=== PATIENT | female | born 1945 | race Caucasian/White ===

== ENCOUNTER 2023-12-22 05:13 | Observation (INO) ==
--- NOTE | 2023-12-11 08:55 | PAT Medication Instructions ---
Medication Instructions Date of Service December 11, 2023 Home Medications aspirin 81 mg capsule 81 mg PO QAM calcium carbonate 600 mg-vitamin D3 5 mcg (200 unit) tablet 1 tab PO DAILY fluoxetine 20 mg capsule 20 mg PO QAM gabapentin 100 mg capsule 200 mg PO HS lisinopril 2.5 mg tablet 2.5 mg PO PM multivitamin 1 tab PO QAM omega 6-lof-jqj-fish oil 300 mg-1,000 mg capsule (Fish Oil) 1 cap PO QAM rosuvastatin 10 mg tablet 10 mg PO PM triamcinolone acetonide 55 mcg nasal spray aerosol (Nasacort) 1 spray intranasal QAM ASK your prescriber and surgeon aspirin 81 mg capsule 81 mg PO QAM STOP taking 2 weeks before surgery (or as soon as possible if surgery is within 2 weeks) omega 7-tvs-kgl-fish oil 300 mg-1,000 mg capsule (Fish Oil) 1 cap PO QAM DO NOT take the morning of surgery calcium carbonate 600 mg-vitamin D3 5 mcg (200 unit) tablet 1 tab PO DAILY multivitamin 1 tab PO QAM Take morning of surgery With a small sip of water, OTHERWISE NOTHING TO EAT OR DRINK AFTER MIDNIGHT: fluoxetine 20 mg capsule 20 mg PO QAM triamcinolone acetonide 55 mcg nasal spray aerosol (Nasacort) 1 spray intranasal QAM Take evening before surgery gabapentin 100 mg capsule 200 mg PO HS lisinopril 2.5 mg tablet 2.5 mg PO PM rosuvastatin 10 mg tablet 10 mg PO PM Other Notes If you have any questions please call us at [phone] or [phone] or [phone] or [phone]
--- NOTE | 2023-12-14 10:05 | Anesthesiology Consultation ---
Date of Service December 14, 2023 Assessment & Plan (1) Encounter for pre-operative examination: Chart Review Chart Review: Acceptable Risk for Surgery and Patient seen in Pre Admission Testing - Patient is NOT an ideal OPJ candidate (currently 23 hour obs) Per PAT appt on 12/14/23, no recent illness/disease exposures, illness related symptoms, or recent illness/disease positive tests. Will leave to surgeon's discretion if preop Covid testing needed Teaching & Discussion Pre-Anesthesia Teaching/Discussion Notes: Instructed NPO after midnight before surgery,except medications with 15 cc of water. Medication instructions provided according to the [facility] guidelines. History Surgery Operation Date: 12/22/23 07:00 Proposed Procedures p Right Total Knee Arthroplasty - Lon Calero MD Height/Weight Height: 5 ft 2 in Weight: 82.3 kg Allergies Allergy/AdvReac Type Severity Reaction Status Date / Time Sulfa (Sulfonamide Allergy Mild HIVES Verified 12/10/23 14:13 Antibiotics) Medications Home Medications Medication Instructions Recorded Confirmed Last Taken aspirin 81 mg capsule 81 mg PO QAM 12/10/23 12/10/23 Unknown calcium carbonate 600 mg-vitamin 1 tab PO DAILY 12/10/23 12/10/23 Unknown D3 5 mcg (200 unit) tablet fluoxetine 20 mg capsule 20 mg PO QAM 12/10/23 12/10/23 Unknown gabapentin 100 mg capsule 200 mg PO HS 12/10/23 12/10/23 Unknown lisinopril 2.5 mg tablet 2.5 mg PO PM 12/10/23 12/10/23 Unknown multivitamin 1 tab PO QAM 12/10/23 12/10/23 Unknown omega 1-tmt-raj-fish oil 300 1 cap PO QAM 12/10/23 12/10/23 Unknown mg-1,000 mg capsule (Fish Oil) rosuvastatin 10 mg tablet 10 mg PO PM 12/10/23 12/10/23 Unknown triamcinolone acetonide 55 mcg 1 spray intranasal QAM 12/10/23 12/10/23 Unknown nasal spray aerosol (Nasacort) Past Medical History Medical History Bilateral primary osteoarthritis of knee Depression stable History of COVID-19 fall 2022 - no residual issues Hx of migraine headaches no issues x 20 years Hyperlipidemia Hypertension Neuropathy Bilateral hands and feet x > 30 years Sleep apnea no device - could not tolerate Slow to wake up after anesthesia Stress incontinence Exercise / Class Metabolic Activity III < 4 Walking/Shop/Light housework (no chest pain or SOB- with flat surface ambulation ) Past Surgical History Surgical History (Updated 12/14/23 @ 13:56 by Venus Sparks PA-C) History of x1 (twins) (38 years ago) History of colonoscopy History of surgery Right lower neck surgery to remove muscle mass caused by forceps used at History of tonsillectomy History of tooth extraction Past Anesthesia History No Hx of Anesthesia Complications (with exception to slow to wake with anesthesia- just groggy - no reintubation or ICU stay ) and No Family Hx of Anesthesia Complications History of PONV No Hx of PONV and No Hx of Motion Sickness Social History Smoking Status: Former smoker Do You Dip or Chew Tobacco: No Smoking End Date: in college only short term Hx Alcohol Use: Yes Alcohol type: beer, wine and hard liquor alcohol intake frequency: holidays/special occasions only Hx Substance Use: No substance use type: does not use Review of Systems Patient denies chest pain, shortness of breath, dyspnea on exertion, reflux, cough, wheezing, palpitations. No hx of seizures, stroke, HI. No hx of blood clots or blood transfusions Physical Exam Vital Signs VITALS BP 150/77 (usually well controlled) P 65 TEMP 97.6 SP02 98% RESP 16 Constitutional no acute distress ENMT Mouth: no TMJ clicking Thyromental Distance: > or= 3.5 Finger Breadths (3.5) Mallampati Class: III Crowns to molars Neck neck extension not limited Respiratory normal respiratory effort; no respiratory distress Auscultation: lungs clear to auscultation bilaterally; no wheezes Cardiovascular Rate/Rhythm: regular rate and regular rhythm Heart Sounds: no murmur Vessels: no carotid bruit Musculoskeletal Spine: no pain with cervical ROM Extremities: extremities normal to inspection Psychiatric Orientation: alert Lab Results Anesthesia Preop Results Results Anesthesia Widget: WBC 6.32 K/ul (4.8-10.8) 12/14/23 Hgb 12.4 g/dl (12.0-16.0) 12/14/23 Hct 36.1 % (37.0-47.0) L 12/14/23 Plt 289 K/uL (130-400) 12/14/23 Na 140 mmol/L (136-145) 12/14/23 K 4.7 mmol/L (3.5-5.1) 12/14/23 Cl 107 mmol/L (98-107) 12/14/23 CO2 26 mmol/L (21-32) 12/14/23 BUN 16 mg/dl (6-23) 12/14/23 Creat 0.74 mg/dl (0.6-1.2) 12/14/23 Glucose Level 79 mg/dl (70-99(Fasting)) 12/14/23 PT 10.5 Seconds (9.0-12.0) 12/14/23 PTT 28 Seconds (21-31) 12/14/23 INR 1.0 (0.9-1.1) 12/14/23 Blood Type O Positive 12/14/23 Antibody Screen NEGATIVE 12/14/23 Testing Electrocardiogram Date: 12/14/23 Findings: + NSR @ (61bpm ) Normal EKG per cardio Chest X-Ray Date: 12/14/23 Findings: + NAD Stress Test Date: 02/27/21 Type: exercise (ECHO) Resting EF: 55-59% Resting LV Function: normal Resting RWMA: + none Valvular Disease: no significant valvular disease Stress ECHO is negative for inducible ischemia. MPHR 87%. 6.0 METS achieved. Exercise test was terminated per patient request due to fatigue and difficulty maintaining pace on treadmill related to peripheral neuropathy Patient's presenting symptom of bandlike chest discomfort was no reproduced. Mild cLVH. Grade I DD.
[2023-12-22] MEDS: FAMOTIDINE 20 MG TAB PO SCH (06:05)
[2023-12-22] MEDS: ACETAMINOPHEN 500 MG TAB PO SCH ×2 (06:05→10:47)
[2023-12-22] MEDS: METOCLOPRAMIDE HCL 10 MG TABLET PO SCH (06:05)
[2023-12-22] MEDS: CeleBREX 200 MG CAP PO SCH (06:05)
[2023-12-22] MEDS: dexAMETHasone**PF** 10 MG/ML VIAL IV SCH (06:06)
[2023-12-22] MEDS: LR 500ML BOLUS, THEN 15ML/HR IV SCH (06:06)
[2023-12-22] MEDS: LR 60ML/HR IV SCH (06:06)
[2023-12-22] MEDS ORDERED: PROPOFOL IV EMULSION 10 MG/ML 20 ML VIAL IV ONE (06:32)
[2023-12-22] MEDS ORDERED: fentaNYL citrate PF 100 MCG/2 ML VIAL ONE (06:32)
[2023-12-22] MEDS ORDERED: MIDAZOLAM HCL 1 MG/ML 2ML VIAL ONE (06:32)
[2023-12-22] MEDS ORDERED: BUPIVACAINE 0.5 % 5 MG/1 ML PF 10ML VIAL ONE (06:33)
[2023-12-22] MEDS ORDERED: BUPIVACAINE 0.25% PF 30 ML VIAL ONE (06:33)
[2023-12-22] MEDS ORDERED: ePHEDrine sulfate 50 MG/ML AMP IV PRN (06:42)
[2023-12-22] MEDS ORDERED: fentaNYL citrate PF 100 MCG/2 ML VIAL IV PRN (06:42)
[2023-12-22] MEDS ORDERED: ATROPINE SULFATE 0.1 MG/ML 10ML SYR IV PRN (06:42)
--- NOTE | 2023-12-22 06:49 | History & Physical Bridge Note ---
Date of Service December 22, 2023 History & Physical Bridge Note I have examined the patient, reviewed the History & Physical and in the interval since the performance of the History & Physical I have noted the following changes of clinical significance: no changes noted
[2023-12-22] MEDS: ceFAZolin 2000MG 2,000 MG/15 ML SYR IV SCH ×2 (06:58→13:50)
[2023-12-22] MEDS: ORTHO JOINT ANESTHETIC ONE (07:33)
[2023-12-22] MEDS: ROPIV 0.5% 246mg, Ketorolac 30mg, EPINEPHrine 0.5mg in NSS INFIL SCH (07:33)
[2023-12-22] MEDS: TRANEXAMIC ACID 1,000 MG **IV Intra-op IV SCH (07:46)
--- NOTE | 2023-12-22 08:50 | Operative Report ---
PG Post Operative Report Pre & Post Diagnosis Operation Date: 12/22/23 07:00 Pre-Op Diagnosis: DJD Knee Right Post-Op Diagnosis: DJD Knee Right I identified the patient and participated in the time-out.: Yes Procedure Operation Date: 12/22/23 07:00 Actual Procedures p Right Total Knee Arthroplasty(Right) - Lon Calero MD Surgeon Lon Calero MD Commercial Sales Manager Melvin Langford PA-C Estimated Blood Loss 50 Findings Consistent with Post-Op Diagnosis Operative findings were advanced right knee lateral compartment DJD. She had pretty extensive grade 4 qrrn-uh-viot disease the anterolateral compartment. M oderate-sized joint effusion. Valgus deformity to her knee. She had grade 4 patellofemoral disease as well. The medial compartment was pretty well spared. Specimens Right knee sent for pathology. Anesthesia Type Spinal MAC Complications none Disposition Accompanied Patient To Recovery: No Indications Patient is a 77-year-old female is had a 7-year history of increasing bilateral knee pain discomfort right-sided bit worse than the left. She been through extensive conservative treatment provided at [facility] which has become less successful over time. She came more debilitated by her knee pain. X-rays show advanced knee arthritis. She elected proceed with total knee arthroplasty. Description of Procedure Operative implants consist of: 1. Biomet Vanguard size 60 right posterior stabilized femoral component. 2. Biomet size 63 tibial tray. 3. 10 mm post stabilized polyethylene insert. 4. 28 x 8 all poly patella. The patient was taken the operating, identified, placed on the operating table in the supine position. All contact areas were appropriately padded. IV antibiotics tried by anesthesia team. Spinal anesthetic and abductor canal block had been provided in the holding area. A Gallo catheter was placed in sterile fashion. Right thigh tourniquet was then placed in the right lower extremity was then prepped and draped in usual sterile fashion. The right leg was elevated exsanguinated with use of an Esmarch and the tourniquet was placed at 300 mmHg. An anterior approach to the right knee was then performed to longitudinal incision centered over the patella. Sharp dissection Through subcutaneous tissue down the extensor mechanism. A medial parapatellar arthrotomy incision was made. Some subperiosteal dissection was carried out medially. The fat pad was resected from Neath patella tendon. Lateral patellofemoral ligament was released. Patella was subluxated laterally and the knee was flexed. The osteophytes taken off distal femur. The ACL and PCL were then released from the distal femur and the tibia subluxated anteriorly. The external treatment line jig was then placed in the interface the tibia and adjusted 12 mm medially. Proximal tibial cut was made remove about 2 to 3 mm of bone from the medial side. The tibia was sized to a size 63. Attention drawn the femur. The distal femur was entered with a sharp drill. Intramedullary canal was suction. A right 5 degree valgus cutting guide was placed. The distal femoral cutting block was pinned in place. Distal femoral cut was made to take an additional 3 mm of bone off distal femur. The knee was brought out in extension but. I then released the IT band some to equalize extension gap. The knee was then sized and a size 66 size was selected. The AP cutting block was pinned parallel to the epicondylar axis which was 4 degrees of external rotation. The anterior cut, anterior chamfer, posterior cut, posterior chamfer cuts were made. The box cutting guide was placed in the just slight lateral and the box cut was made. The knee was flexed. The remnants of the medial and lateral menisci were excised. The osteophytes taken off the posterior aspect the femur. A trial femoral component was placed. The tibial tray was pinned in maximum external rotation and the drill and stem punch were used to create defect in proximal t ibia for the tibial tray. The knee was then trialed and the 10 mm insert fit most appropriately. Attention drawn to place the patella. The patella was cleared of all soft tissues. Patella thickness measured 18 mm in thickness was cut down to 13. Was sized to a size 28 patella. The locals were drilled for the 28 patella. The lateral osteophyte was removed. Patella button was placed. Knee was taken through range of motion patella tracked nicely with no thumbs test. Attention drawn to placing the permanent components. Nupathe all trial components were removed. Bone plug was placed in the distal femur limit blood loss. A double batch Palacos G cement was mixed. [employer] size 60 right posterior stabilized femoral component, size 63 tibial tray, a 10 mm posterior stabilized polyethylene insert, and a 28 x 8 all poly patella then cemented in place. The knee was brought out into full extension till cement hardened. Final cement check was then performed. The pericapsular tissues were injected with total of 100 cc of orthopedic joint mix. The patient did receive 1 g tranexamic acid. The tourniquet was then let down for final tourniquet time 54 minutes. Hemostasis assured use electrocautery. Extensor Meclomen closed with combination 1 PDS suture #1 Vicryl suture in [id number] fashion. Extensor Meclomen checked found to be intact and subcutaneous tissues then closed with 2 Dexon suture in a buried interrupted fashion skin was closed skin teddy. Leg was then cleaned and dried and sterile dressing with Xeroform, 4 fours, sterile ABD pad, sterile cast padding, Parker bandage were applied. The patient then transferred to the recovery in stable condition. Patient tolerated the procedure well and there were no complications. Melvin Langford, my physician digital assistant, was present for the entire procedure. His assistance was essential and required for appropriate patient positioning, prepping and draping, surgical exposure, performing the technical details of the operation, placement the implants, closure of the wound, and placement of the sterile bandage. I attest to the content of the Intraoperative Record and any orders documented therein. Any exceptions are noted below.
--- NOTE | 2023-12-22 09:29 | XRay Report ---
TWO VIEWS RIGHT KNEE CLINICAL HISTORY: Postoperative examination. FINDINGS: AP and crosstable lateral portable views of the right knee are obtained. A right knee arthr oplasty is in near anatomic alignment. There has been undersurface remodeling of the patella. No acut e fracture is seen. There are expected postoperative changes around the knee including skin clips, so ft tissue edema, and subcutaneous gas. IMPRESSION: Expected postoperative changes status post right knee arthroplasty. No acute fracture is seen. ACT 112: Negative or not required by law. Electronically signed by: Haroldo Vanessa M.D. 12/22/2023 9:28 AM
[2023-12-22] MEDS ORDERED: NON-FORMULARY MEDICATION (Multivitamin Tablet) PO SCH (09:40)
[2023-12-22] MEDS ORDERED: MAGNESIUM HYDROXIDE SUSP 30 ML UDC PO PRN (09:40)
[2023-12-22] MEDS ORDERED: ONDANSETRON INJ 2 MG/ML 2 ML VIAL IV PRN (09:40)
[2023-12-22] MEDS ORDERED: bisacodyL 10 MG SUPP PR PRN (09:40)
[2023-12-22] MEDS ORDERED: ALUMINUM/MAGNESIUM SUSP 30 ML UDC PO PRN (09:40)
[2023-12-22] MEDS ORDERED: NALOXONE HCL 0.4 MG/1 ML VIAL/CARP IV PRN (09:40)
[2023-12-22] MEDS ORDERED: METOCLOPRAMIDE HCL INJ 5 MG/ML 2 ML VIAL IV PRN (09:40)
[2023-12-22] MEDS: SODIUM CHLORIDE 0.9% 1,000 ML IV SCH (10:15)
--- NOTE | 2023-12-22 10:31 | Anesthesiology Progress Note ---
Date of Service December 22, 2023 Anesthesia Post Procedure Vital Signs Vital Signs: Temp Pulse Pulse Resp BP Pulse Ox O2 Del Method 12/22/23 10:05 37 C 90 18 145/71 H 97 Room Air 12/22/23 09:41 36.7 C 85 18 128/68 96 Room Air 12/22/23 09:30 86 18 132/64 95 Room Air 12/22/23 09:20 36.5 C 92 H 20 128/62 96 Room Air 12/22/23 09:10 89 20 145/55 H 98 Room Air 12/22/23 09:00 89 18 138/72 98 Oxymask 12/22/23 08:50 98 H 16 124/78 100 Oxymask 12/22/23 08:44 36.2 C L 96 H 14 141/63 H 96 Oxymask 12/22/23 05:40 36.8 C 72 20 160/67 H 98 Room Air O2 Flow Rate 12/22/23 10:05 12/22/23 09:41 12/22/23 09:30 12/22/23 09:20 12/22/23 09:10 12/22/23 09:00 2 12/22/23 08:50 4 12/22/23 08:44 6 12/22/23 05:40 Transfer of Care Handoff Completed per policy Notes Mental Status: alert / awake / arousable Patient Amnestic to Procedure: Yes Nausea / Vomiting: adequately controlled Pain: adequately controlled Airway Patency, RR, SpO2: stable & adequate BP & HR: stable & adequate Hydration State: stable & adequate Neuraxial Anesthesia: was administered and sensory block is resolving Anesthetic Complications: no major complications apparent and Pt Satisfied with anesthetic care
[2023-12-22] MEDS: ASPIRIN 81 MG ECTAB PO SCH (10:41)
[2023-12-22] MEDS: DOCUSATE SODIUM 100 MG CAP PO SCH (10:41)
[2023-12-22] MEDS: FLUoxetine HCL 20 MG CAP PO SCH (10:41)
[2023-12-22] MEDS: MULTIVITAMIN TAB PO SCH (10:43)
[2023-12-22] MEDS: FLUTICASONE PROPIONATE NA SPR 16 GM BTL NAE SCH (10:45)
[2023-12-22] MEDS: OMEGA-3 (PURIFIED FISH OIL) 1 GM CAP PO SCH (10:46)
[2023-12-22] MEDS: CALCIUM 600MG + VIT D 400 IU TAB PO SCH (10:46)
[2023-12-22] MEDS: SENNA 8.6 MG TAB PO SCH ×2 (10:47→20:08)
[2023-12-22] MEDS: KETOROLAC TROMETHAMINE 15 MG/ML VIAL IV SCH (10:50)
[2023-12-22] MEDS: ONDANSETRON INJ 2 MG/ML 2 ML VIAL IV PRN (11:13)
[2023-12-22] MEDS: rOPINIRole HCL 0.25 MG TABLET PO SCH (11:34)
[2023-12-22 11:45] VITALS: RESP 16
[2023-12-22] MEDS: TRANEXAMIC ACID / 0.7% NACL 1,000 MG/100 ML BAG IV SCH (13:50)
[2023-12-22] MEDS: ASCORBIC ACID 500 MG TAB PO SCH (17:16)
[2023-12-22] MEDS: lisinopril 2.5 MG TAB PO SCH (20:05)
[2023-12-22] MEDS: ROSUVASTATIN CALCIUM 10 MG TAB PO SCH (20:05)
[2023-12-22] MEDS: GABAPENTIN 100 MG CAP PO SCH (20:06)
[2023-12-22] MEDS ORDERED: rOPINIRole HCL 0.25 MG TABLET PO SCH (21:00)
[2023-12-22] MEDS: oxyCODONE HCL IR 5 MG TAB (IMMEDIATE RELEASE) PO PRN (21:23)
[2023-12-23] MEDS: HYDROmorphone INJ 0.5 MG/0.5 ML SYR IV PRN (01:39)
[2023-12-23 06:32] LABS: Hematocrit (blood only) 30.9 % (37.0-47.0); Hemoglobin 10.4 g/dl (12.0-16.0); Mean Corpuscular Hemoglobin 31.1 pg (25.0-34.0); Mean Corpuscular Hgb Conc 33.7 g/dL (32.0-36.0); Mean Corpuscular Volume 92.5 fL (80.0-100.0); Platelet Count 262 K/uL (130-400); RDW Coefficient of Variation 12.8 % (11.5-14.5); RDW Standard Deviation 43.1 fL (36.4-46.3); Red Blood Count 3.34 M/uL (4.20-5.40); White Blood Count 13.76 K/ul (4.8-10.8)
[2023-12-23 06:37] LABS: BUN Creatinine Ratio 21.5 (10-20); Est GFR (African American) 99.3 ml/min; Est GFR (Non-African American) 85.6 ml/min; Potassium 4.1 mmol/L (3.5-5.1)
--- NOTE | 2023-12-23 07:23 | Orthopedic Progress Note ---
Date of Service December 23, 2023 Assessment & Plan (1) Status post total right knee replacement: Pain controlled. Continue current pain management. DVT prophylaxis: aspirin bid, teds, scd's PT/OT: wbat D/c planning: Likely discharge home today with home health, depending how therapy goes. Will discuss with Dr. Abdias Morris . 77 year old patient POD #1 from right tka. Doing reasonably well. Pain controlled. She said she just had 2 oxycodone. Denies lightheadedness/dizziness. Review of Systems All systems reviewed & are unremarkable except as noted in HPI & below. Physical Exam .alert and oriented. NAD VSS, afebrile. Right leg: dressing clean, dry, intact. Able to do a straight leg raise. Calf soft, nontender. Able to dorsiflex and plantarflex. NVI Hgb: 10.4 Results & Data Results & Data Laboratory Results . Diagnostic Findings . PG Care Time/CCT Total # of Minutes Spent Total Time Spent with Patient: Total time spent is greater than 50% in coordination of care (as documented) at patient's floor/unit and/or counseling patient: Coding Level of Care Code 79808 Post Operative Follow-Up Diagnoses Status post total right knee replacement Z96.651
[2023-12-23 07:33] VITALS: BP 118/66; PULSE 65; TEMP 97.5; O2SAT 96
[2023-12-23] MEDS: dexAMETHasone 10 MG in SYRINGE 0 ML IV SCH (07:41)
--- NOTE | 2023-12-24 13:53 | Discharge Summary ---
Date of Service December 24, 2023 Discharge Data Procedures Performed Operation Date: 12/22/23 07:00 Actual Procedures p Right Total Knee Arthroplasty(Right) - Lon Calero MD Hospital Course (1) Status post total right knee replacement: This is a 77 year old patient admitted on 12/22/23 and underwent total knee arthroplasty. She tolerated the procedure well and there were no complications. Transferred to the PACU post op and later to the orthopedic floor for further care. She was given ancef for antibiotic prophylaxis. She was also given CATIE stockings, SCDs, and aspirin for DVT prophylaxis. Hemoglobin, hematocrit, and vital signs were monitored during her hospital stay and remained stable. Did not require any blood transfusions. There were no complications during her hospital stay. By post op day #1 the patient was tolerating a regular diet, pain was reasonably controlled with oral pain medicine, and she was participating in physical therapy. On post op day #1 the patient was discharged home and set up with home health care. She was given printed discharge instructions including prescriptions for extra strength tylenol, aspirin, cefadroxil, ketorolac, zofran, oxycodone, and senokot. Continue physical therapy, weight bearing as tolerated. Continue CATIE stockings. Follow up approximately 2 weeks post op or sooner if there are problems or concerns. Coding Level of Care Code None Diagnoses Status post total right knee replacement Z96.651
== END 2023-12-23 11:35 | disposition home health service (06) ==
LOC: 3E 05:13 → ASU 05:13

== ENCOUNTER 2024-10-04 05:16 | Observation (INO) ==
--- NOTE | 2024-08-11 13:01 | PAT Medication Instructions ---
Medication Instructions Date of Service August 11, 2024 Home Medications Medication Instructions Recorded Mila Walker #1 ea 12/15/23 amoxicillin 500 mg tablet 2,000 mg (4 x 500 mg) PO ONCE #4 04/18/24 tabs calcium 600 mg (as carbonate)-vitamin D3 5 mcg (200 unit) tablet 2 tab PO QAM fluoxetine 20 mg capsule 20 mg PO QAM gabapentin 100 mg capsule 100 mg PO TID lisinopril 2.5 mg tablet 2.5 mg PO QPM multivitamin 1 tab PO QAM omega 8-ytq-exe-fish oil 300 mg-1,000 mg capsule (Fish Oil) 1 cap PO QAM rosuvastatin 10 mg tablet 10 mg PO QPM triamcinolone acetonide 55 mcg nasal spray aerosol (Nasacort) 1 spray intranasal QAM amoxicillin 500 mg tablet 2,000 mg (4 x 500 mg) PO ONCE acetaminophen 500 mg tablet (Tylenol Extra Strength) 1,000 mg PO TID PRN pain aspirin 81 mg tablet,delayed release (Silvano Low Dose Aspirin) 81 mg PO QAM ibuprofen 200 mg tablet 400 mg PO Q6H PRN Pain ropinirole 0.5 mg tablet 0.5 mg PO TID PRN Restless Leg(S) ropinirole 1 mg tablet 1 mg PO HS vitamin B12 1 mg-folic acid 0.8 mg tablet 1 tab PO DAILY Continue as directed amoxicillin 500 mg tablet 2,000 mg (4 x 500 mg) PO ONCE (if needed) ASK your surgeon for instructions ibuprofen 200 mg tablet 400 mg PO Q6H PRN Pain STOP taking 2 weeks before surgery omega 9-plz-dvb-fish oil 300 mg-1,000 mg capsule (Fish Oil) 1 cap PO QAM DO NOT take the morning of surgery calcium 600 mg (as carbonate)-vitamin D3 5 mcg (200 unit) tablet 2 tab PO QAM multivitamin 1 tab PO QAM vitamin B12 1 mg-folic acid 0.8 mg tablet 1 tab PO DAILY Take morning of surgery With a small sip of water, OTHERWISE NOTHING TO EAT OR DRINK AFTER MIDNIGHT: fluoxetine 20 mg capsule 20 mg PO QAM gabapentin 100 mg capsule 100 mg PO TID triamcinolone acetonide 55 mcg nasal spray aerosol (Nasacort) 1 spray intranasal QAM acetaminophen 500 mg tablet (Tylenol Extra Strength) 1,000 mg PO TID PRN pain (if needed) aspirin 81 mg tablet,delayed release (Silvano Low Dose Aspirin) 81 mg PO QAM (unless surgeon directed otherwise) ropinirole 0.5 mg tablet 0.5 mg PO TID PRN Restless Leg(S) (if needed) Take evening before surgery gabapentin 100 mg capsule 100 mg PO TID lisinopril 2.5 mg tablet 2.5 mg PO QPM rosuvastatin 10 mg tablet 10 mg PO QPM acetaminophen 500 mg tablet (Tylenol Extra Strength) 1,000 mg PO TID PRN pain (if needed) ropinirole 1 mg tablet 1 mg PO HS ropinirole 0.5 mg tablet 0.5 mg PO TID PRN Restless Leg(S) (if needed) Other Notes If you have any questions please call us at [phone] or [phone] or [phone] or [phone]
--- NOTE | 2024-08-17 08:22 | Anesthesiology Consultation ---
Date of Service August 17, 2024 Assessment & Plan (1) Encounter for pre-operative examination: - Outpatient joint assessment: Patient is currently scheduled for inpatient pathway. If re-evaluated and patient/surgeon requests outpatient pathway, patient is not advised candidate for outpatient joint program from anesthesia standpoint. Chart Review Chart Review: Acceptable Risk for Surgery and Patient seen in Pre Admission Testing Teaching & Discussion Pre-Anesthesia Teaching/Discussion Notes: Instructed NPO after midnight before surgery, except medications with 15 cc of water. Medication instructions prov ided according to the PAT guidelines. History Surgery Operation Date: 09/07/24 07:00 Proposed Procedures p Left Total Knee Arthroplasty - Lon Calero MD Height/Weight Height: 5 ft 2.5 in Weight: 89.8 kg Allergies Allergy/AdvReac Type Severity Reaction Status Date / Time Sulfa (Sulfonamide Allergy Mild Hives Verified 08/05/24 11:16 Antibiotics) Medications Home Medications Medication Instructions Recorded Confirmed Last Taken calcium 600 mg (as 2 tab PO QAM 12/10/23 08/05/24 12/21/23 08:00 carbonate)-vitamin D3 5 mcg (200 unit) tablet fluoxetine 20 mg capsule 20 mg PO QAM 12/10/23 08/05/24 12/22/23 04:30 gabapentin 100 mg capsule 100 mg PO TID 12/10/23 08/05/24 12/21/23 19:30 lisinopril 2.5 mg tablet 2.5 mg PO QPM 12/10/23 08/05/24 12/21/23 19:30 multivitamin 1 tab PO QAM 12/10/23 08/05/24 12/21/23 08:00 omega 3-udg-yyg-fish oil 300 1 cap PO QAM 12/10/23 08/05/24 12/12/23 mg-1,000 mg capsule (Fish Oil) rosuvastatin 10 mg tablet 10 mg PO QPM 12/10/23 08/05/24 12/21/23 17:30 triamcinolone acetonide 55 mcg 1 spray intranasal QAM 12/10/23 08/05/24 12/22/23 04:30 nasal spray aerosol (Nasacort) Wheeled Walker #1 ea 12/15/23 Unknown amoxicillin 500 mg tablet 2,000 mg (4 x 500 mg) PO ONCE #4 04/18/24 08/05/24 Unknown tabs acetaminophen 500 mg tablet 1,000 mg PO TID PRN pain 08/05/24 08/05/24 Unknown (Tylenol Extra Strength) aspirin 81 mg tablet,delayed 81 mg PO QAM 08/05/24 08/05/24 Unknown release (Silvano Low Dose Aspirin) ibuprofen 200 mg tablet 400 mg PO Q6H PRN Pain 08/05/24 08/05/24 Unknown ropinirole 0.5 mg tablet 0.5 mg PO TID PRN Restless Leg(S) 08/05/24 08/05/24 Unknown ropinirole 1 mg tablet 1 mg PO HS 08/05/24 08/05/24 Unknown vitamin B12 1 mg-folic acid 0.8 mg 1 tab PO DAILY 08/05/24 08/05/24 Unknown tablet Past Medical History Medical History Bilateral primary osteoarthritis of knee Depression stable Hearing loss Bilateral Hearing Aids History of COVID-19 (~2022) fall 2022 - no residual issues Hx of migraine headaches no issues x 20 years Hyperlipidemia Hypertension controlled, stable per pt Neuropathy feet x > 30 years Restless leg Sleep apnea no device - could not tolerate Slow to wake up after anesthesia denies needing re-intubation Stress incontinence Patient denies h/o stroke, seizures, heart attack, heart failure, DM, blood clots/DVTs or blood transfusions. Exercise / Class Metabolic Activity II 4-5 Yardwork/Stairs/Walk up hill (denies chest discomfort or shortness of breath with one flight of stairs-notes is going up stairs very slowly due to knee pain-denies chest discomfort) Past Surgical History Surgical History History of arthroplasty of right knee (12/22/23) SAB L4-L5 1 attempt + PNB. History of x1 (twins) (38 years ago) History of colonoscopy History of surgery x 2 in childhood-right lower neck surgery to remove muscle mass caused by forceps used at History of tonsillectomy History of tooth extraction Past Anesthesia History No Family Hx of Anesthesia Complications History of PONV No Hx of PONV and No Hx of Motion Sickness Social History Smoking Status: Never smoker Do You Dip or Chew Tobacco: No Hx Alcohol Use: Yes Alcohol type: wine alcohol intake frequency: holidays/special occasions only Hx Substance Use: No substance use type: does not use Review of Systems Patient denies chest pain, shortness of breath, dyspnea on exertion, reflux, fever, chills, cough, wheezing, or palpitations. Physical Exam Vital Signs Vitals BP 128/74 P 65 TEMP 98.3 SP02 95% on RA RESP 18 Physical Patient resting comfortably in chair in no acute distress, alert and oriented, responding appropriately throughout visit Full cervical extension range of motion without pain TMD < 3 finger breadths Mallampati Score 3 Dentition: several crowns, denies chipped or loose teeth, crowns, implants or bridges Lungs: normal respiratory effort. Good air movement, clear throughout to auscultation, no adventitious breath sounds Cardiac: regular rate and rhythm, no murmurs noted Carotid arteries: negative bruit bilat Lab Results Anesthesia Preop Results Results Anesthesia Widget: WBC 4.93 K/ul (4.8-10.8) 08/17/24 Hgb 11.6 g/dl (12.0-16.0) L 08/17/24 Hct 34.5 % (37.0-47.0) L 08/17/24 Plt 268 K/uL (130-400) 08/17/24 Na 140 mmol/L (136-145) 08/17/24 K 4.0 mmol/L (3.5-5.1) 08/17/24 Cl 108 mmol/L (98-107) H 08/17/24 CO2 27 mmol/L (21-32) 08/17/24 BUN 22 mg/dl (6-23) 08/17/24 Creat 0.61 mg/dl (0.6-1.2) 08/17/24 Glucose Level 81 mg/dl (70-99(Fasting)) 08/17/24 PT 10.4 Seconds (9.0-12.0) 08/17/24 PTT 28 Seconds (21-31) 08/17/24 INR 1.0 (0.9-1.1) 08/17/24 Blood Type O Positive 08/17/24 Antibody Screen NEGATIVE 08/17/24 Testing Electrocardiogram Date: 12/14/23 NSR, rate 61 bpm Chest X-Ray Date: 12/14/23 No acute process. Stress Test Date: 02/27/21 Negative for inducible ischemia
--- NOTE | 2024-09-01 10:07 | History & Physical Report ---
Date of Service September 01, 2024 Assessment & Plan (1) Bilateral primary osteoarthritis of knee: 78-year-old female 8 and half months out from a right knee replacement with advanced left knee DJD. Very temporary response to injection. She become more debilitated by her knee would like to have her left knee replaced. Plan: Waqar taken to the operating room do left total knee replacement but the risks Mente this procedure explained and she understands. Informed consent was obtained. Will do the best we can to manage her constipation issues postoperatively. Will try and limit narcotics and use stool softeners. She is planned to be discharged to home using home health and her 's assistance. Will use aspirin for DVT prophylaxis. (2) Hyperlipidemia: (3) Hypertension: (4) Neuropathy: (5) Depression: History of Present Illness Chief Complaint: . Persistent left knee pain and discomfort. Primary Care Provider: Tana Garza DO . The patient is a 78-year-old female who presents now for surgical treatment of her left knee. She underwent a right knee replacement about 8 and half months ago and is done pretty well with this. The first couple weeks were pretty rough but doing much better now. She continues to be limited by left knee pain discomfort. She has had injections of which provided couple weeks relief and that is about it. She become more debilitated by her knee pain and discomfort. She limps more as the day goes on. She is ready to have her left knee effects. Of note, she had significant constipation problems after her last surgery and will do the best we can to manage this. Allergies Allergy/AdvReac Type Severity Reaction Status Date / Time Sulfa (Sulfonamide Allergy Mild Hives Verified 08/05/24 11:16 Antibiotics) Home Medications Medication Instructions Recorded Confirmed Type calcium 600 mg (as 2 tab PO QAM 12/10/23 08/05/24 History carbonate)-vitamin D3 5 mcg (200 unit) tablet fluoxetine 20 mg capsule 20 mg PO QAM 12/10/23 08/05/24 History gabapentin 100 mg capsule 100 mg PO TID 12/10/23 08/05/24 History lisinopril 2.5 mg tablet 2.5 mg PO QPM 12/10/23 08/05/24 History multivitamin 1 tab PO QAM 12/10/23 08/05/24 History omega 2-say-ios-fish oil 300 1 cap PO QAM 12/10/23 08/05/24 History mg-1,000 mg capsule (Fish Oil) rosuvastatin 10 mg tablet 10 mg PO QPM 12/10/23 08/05/24 History triamcinolone acetonide 55 mcg 1 spray intranasal QAM 12/10/23 08/05/24 History nasal spray aerosol (Nasacort) Wheeled Walker #1 ea 12/15/23 Rx amoxicillin 500 mg tablet 2,000 mg (4 x 500 mg) PO ONCE #4 04/18/24 08/05/24 Rx tabs acetaminophen 500 mg tablet 1,000 mg PO TID PRN pain 08/05/24 08/05/24 History (Tylenol Extra Strength) aspirin 81 mg tablet,delayed 81 mg PO QAM 08/05/24 08/05/24 History release (Silvano Low Dose Aspirin) ibuprofen 200 mg tablet 400 mg PO Q6H PRN Pain 08/05/24 08/05/24 History ropinirole 0.5 mg tablet 0.5 mg PO TID PRN Restless Leg(S) 08/05/24 08/05/24 History ropinirole 1 mg tablet 1 mg PO HS 08/05/24 08/05/24 History vitamin B12 1 mg-folic acid 0.8 mg 1 tab PO DAILY 08/05/24 08/05/24 History tablet Past Med/Surg History Problem List Encounter for pre-operative examination Medical History Restless leg Hearing loss Bilateral Hearing Aids Slow to wake up after anesthesia denies needing re-intubation Hx of migraine headaches no issues x 20 years History of COVID-19 (~2022) fall 2022 - no residual issues Sleep apnea no device - could not tolerate Bilateral primary osteoarthritis of knee Depression stable Stress incontinence Neuropathy feet x > 30 years Hyperlipidemia Hypertension controlled, stable per pt Surgical History History of arthroplasty of right knee (12/22/23) SAB L4-L5 1 attempt + PNB. History of surgery x 2 in childhood-right lower neck surgery to remove muscle mass caused by forceps used at History of colonoscopy History of tooth extraction History of x1 (twins) (38 years ago) History of tonsillectomy Social History Smoking Status: Never smoker Second Hand Exposure: No; Do You Dip or Chew Tobacco: No; Hx Alcohol Use: Yes Alcohol type: wine Hx Substance Use: No Preferred Language: Greenlandic Communication Ability: Effective Follow Up Rep Required: No Beliefs That Will Affect Care: None Current Living Situation: Spouse Feels Safe at Home: Yes Assistive Devices: Hearing Aid - Bilateral Review of Systems All systems reviewed & are unremarkable except as noted in HPI & below. Physical Exam . Physical examination was a pleasant elderly female. Looks in pretty good health. Examination of the left knee reveal patient walks with a bit of a limp. She got valgus alignment to the knee which is increased with weightbearing. Range of motion is about 10 degrees short of full extension to 115 degrees of flexion. There is no instability. No particular pain with hip motion. Examination of the right knee reveals a well-healed incision. No segment swelling. Range of motion 0-1 20. Good straight leg raise. She is neurologically intact. Constitutional WD/WN, vitals as above Neck trachea midline, no thyromegaly Respiratory normal respiratory effort, lungs clear to auscultation Cardiovascular RRR, no murmur, no edema Gastrointestinal (Abdomen) normal bowel sounds, soft, nontender, no hepatosplenomegaly Results & Data Results & Data Laboratory Results . Diagnostic Findings . X-rays of the left knee were reviewed. She has advanced left knee lateral compartment DJD. She has complete loss of lateral joint space on the 45 degree flexion films. She got diffuse osteopenia. The right knee replacement looks to be in good position without problems. PG Care Time/CCT Total # of Minutes Spent Total Time Spent with Patient: Total time spent is greater than 50% in coordination of care (as documented) at patient's floor/unit and/or counseling patient: Coding Level of Care Code None Diagnoses Bilateral primary osteoarthritis of knee M17.0 Hyperlipidemia E78.5 Hypertension I10 Neuropathy G62.9 Depression F32.A
--- NOTE | 2024-09-29 12:36 | History & Physical Report ---
Date of Service September 29, 2024 Assessment & Plan (1) Left knee DJD: 78-year-old female with 9 and half months out from a right knee replacement with advanced left knee DJD. She is done well from the right knee when active to have her left knee fixed. She was actually scheduled previously but had to cancel due to an illness. She is now recovered from this would like to proceed with knee replacement. Plan: Waqar taken to the operating room and do a left knee replacement. The risks and benefits of this procedure explained. She understands. She had a lot of problems with constipation before and we will try and manage this using tramadol for pain as well as Senokot another constipation controlling meds. She is planned to be discharged to home using a home health program and her 's assistance. I will see her back 2 weeks postop. (2) Hyperlipidemia: (3) Hypertension: (4) Depression: (5) Sleep apnea: History of Present Illness Chief Complaint: . Left knee pain and discomfort. Primary Care Provider: Tana Garza DO . The patient is a 78-year-old female who now presents for surgical treatment of her left knee. She had a long history of knee problems that is gradually gotten worse over time. She had a right knee replaced about 9 and half months ago and done pretty well with this. The first couple weeks were difficult but doing much better now. Pretty happy with the right knee. The left knee continues to bother her. She has had injections which provided couple weeks of relief at best. She limps more as the day goes on. Some mild swelling. She is ready to have her left knee fixed. Allergies Allergy/AdvReac Type Severity Reaction Status Date / Time Sulfa (Sulfonamide Allergy Mild Hives Verified 09/28/24 14:40 Antibiotics) Home Medications Medication Instructions Recorded Confirmed Type calcium 600 mg (as 2 tab PO QAM 12/10/23 09/28/24 History carbonate)-vitamin D3 5 mcg (200 unit) tablet fluoxetine 20 mg capsule 20 mg PO QAM 12/10/23 09/28/24 History gabapentin 100 mg capsule 100 mg PO TID 12/10/23 09/28/24 History lisinopril 2.5 mg tablet 2.5 mg PO QPM 12/10/23 09/28/24 History multivitamin 1 tab PO QAM 12/10/23 09/28/24 History omega 0-tnr-dqy-fish oil 300 1 cap PO QAM 12/10/23 09/28/24 History mg-1,000 mg capsule (Fish Oil) rosuvastatin 10 mg tablet 10 mg PO QPM 12/10/23 09/28/24 History triamcinolone acetonide 55 mcg 1 spray intranasal QAM 12/10/23 09/28/24 History nasal spray aerosol (Nasacort) Wheeled Walker #1 ea 12/15/23 Rx amoxicillin 500 mg tablet 2,000 mg (4 x 500 mg) PO ONCE #4 04/18/24 09/28/24 Rx tabs acetaminophen 500 mg tablet 1,000 mg PO TID PRN pain 08/05/24 09/28/24 History (Tylenol Extra Strength) ibuprofen 200 mg tablet 400 mg PO Q6H PRN Pain 08/05/24 09/28/24 History ropinirole 0.5 mg tablet 0.5 mg PO TID PRN Restless Leg(S) 08/05/24 09/28/24 History ropinirole 1 mg tablet 1 mg PO HS 08/05/24 09/28/24 History vitamin B12 1 mg-folic acid 0.8 mg 1 tab PO DAILY 08/05/24 09/28/24 History tablet aspirin 81 mg tablet,delayed 81 mg PO BID 45 days #90 tabs 09/05/24 09/28/24 Rx release (Silvano Low Dose Aspirin) ondansetron 4 mg disintegrating 4 mg PO Q8 PRN nausea #20 tabs 09/05/24 09/28/24 Rx tablet tramadol 50 mg tablet 50 - 100 mg (1 - 2 x 50 mg) PO Q6 09/05/24 09/28/24 Rx PRN pain #40 tabs Past Med/Surg History Problem List (Updated 09/29/24 @ 12:34 by Lon Calero MD) Left knee DJD Medical History Restless leg Hearing loss Bilateral Hearing Aids Slow to wake up after anesthesia denies needing re-intubation Hx of migraine headaches no issues x 20 years History of COVID-19 (~2022) fall 2022 - no residual issues Sleep apnea no device - could not tolerate Bilateral primary osteoarthritis of knee Depression stable Stress incontinence Neuropathy feet x > 30 years Hyperlipidemia Hypertension controlled, stable per pt Surgical History History of arthroplasty of right knee (12/22/23) SAB L4-L5 1 attempt + PNB. History of surgery x 2 in childhood-right lower neck surgery to remove muscle mass caused by forceps used at History of colonoscopy History of tooth extraction History of x1 (twins) (38 years ago) History of tonsillectomy Social History Smoking Status: Never smoker Second Hand Exposure: No; Do You Dip or Chew Tobacco: No; Tobacco Cessation Education Requested by Patient: No Hx Alcohol Use: Yes Alcohol type: wine Hx Substance Use: No Preferred Language: Dutch Communication Ability: Effective Surgical Instrument Technician Required: No Beliefs That Will Affect Care: None Current Living Situation: Spouse Other Information That Helps Us Care for You: No Feels Safe at Home: Yes Safety Concerns: Feels Safe At This Time Assistive Devices: Glasses and Hearing Aid - Bilateral Review of Systems All systems reviewed & are unremarkable except as noted in HPI & below. Physical Exam . Physical examination reveals a pleasant elderly female. Looks in pretty good health. Examination of the left knee reveal patient walks with a slightly of a limp. Got valgus alignment to her knee which is increased with weightbearing. Range of motion about 10-1 15. No instability. No particular pain with hip motion. Examination of the right knee reveals well-healed incision. She got anatomic alignment to the knee. Range of motion 0-1 20. Good straight leg raise. Constitutional WD/WN, vitals as above Neck trachea midline, no thyromegaly Respiratory normal respiratory effort, lungs clear to auscultation Cardiovascular RRR, no murmur, no edema Gastrointestinal (Abdomen) normal bowel sounds, soft, nontender, no hepatosplenomegaly Results & Data Results & Data Laboratory Results . Diagnostic Findings . X-rays of the knees were reviewed. Shows advanced left knee arthritis. She is got complete loss of lateral joint space on the 45 degree flexion films. Some mild diffuse osteopenia. The right knee replacement looks in a good position without problems. PG Care Time/CCT Total # of Minutes Spent Total Time Spent with Patient: Total time spent is greater than 50% in coordination of care (as documented) at patient's floor/unit and/or counseling patient: Coding Level of Care Code None Diagnoses Left knee DJD M17.12 Hyperlipidemia E78.5 Hypertension I10 Depression F32.A Sleep apnea G47.30
[~2024-10-04 05:16] MED LIST: ACETAMINOPHEN 500 MG TAB PO SCH; CeleBREX 200 MG CAP PO SCH; FAMOTIDINE 20 MG TAB PO SCH; LR 500ML BOLUS, THEN 15ML/HR IV SCH; LR 60ML/HR IV SCH; METOCLOPRAMIDE HCL 10 MG TABLET PO SCH; ROPIV 0.5% 246mg, Ketorolac 30mg, EPINEPHrine 0.5mg in NSS INFIL SCH; TRANEXAMIC ACID 1,000 MG **IV Intra-op IV SCH; ceFAZolin 2000MG 2,000 MG/15 ML SYR IV SCH; dexAMETHasone**PF** 10 MG/ML VIAL IV SCH
--- OUTSIDE RECORDS SUMMARY | 2024-10-04 05:27 | External Medical Summary ---
Author Name Unknown Address Unknown Organization [id number]:[facility] [place] [address] [place] [id number] Laboratory Report Ordering Provider Test Date Status CHERYL FRASER 09/09/2024 10:23:48 Final Observation Date Value Abnormality Reference (Units ) Status Lipase 09/09/2024 10:23:48 25 13-60 (U/L ) Final Performing Location [facility] - [address] [place] [id number]
--- OUTSIDE RECORDS SUMMARY | 2024-10-04 05:27 | External Medical Summary | Summary of Care ---
Author Name Unknown Organization [facility] Address [address] [place] [address] Phone [phone] Care Team Providers Care Rebeamer Name Role Phone Tana Garza DO Primary Care Provider [phone] Reason for Referral * (Within 10 days (routine)) - Authorized Specialty Diagnoses / Procedures Referred By Contac t Referred To Contact Radiology Diagnoses Abdominal bloating Procedures US ABDOMEN COMPLETE Shaka Corley DO [address] [place] [address] Phone: tel: fax: Referral ID Status Reason Start Date Expiration Date V isits Requested Visits Authorized [id number] Authorized 08/30/2024 999 999 Reason for Visit * Reason Comments Diarrhea Encounter Details Date Type Department Care Team (Late st Contact Info) Description 08/30/2024 10:20 AM EST Office Visit General Internal Medicine [place] [address] [place] [address] Shaka Corley DO [address] [place] [address] Abdominal bloating* Allergies Active Allergy Reactions Criticality Noted Date Comments Sulfa Antibiotics 01/22/1999 anaphyllaxis documented as of this encounter (statuses as of 08/30/2024) Medications MULTI-DAY TABS OR 1 daily 1 Active CALCIUM + D TABS 600-200 MG-IU OR 1 daily 1 Active FISH OIL 1000 MG PO CAPSIndications :Dyslipidemia, goal to be determined one pill each day 0 0 7 Active triamcinolone acetonide (ARISTOCORT) 0.025 % ointment Apply to irritated skin twice daily as needed 135 g 3 8 Active Aspirin 81 MG Oral Tablet Delayed Release Take 1 Tablet by mouth in the morning. Active Triamcinolone Acetonide 55 MCG/ACT Nasal Aerosol (Nasacort Allergy 24HR) Administer into nostril. Active FLUoxetine HCl 20 MG Oral Capsule (PROzac) TAKE ONE CAPSULE BY MOUTH EVERY DAY 90 Capsule 2 07/23/2024 2:18 PM EST 4 Active Lisinopril 2.5 MG Oral Tablet (Prinivil)Indic ations:HTN, goal below 140/90 TAKE ONE TABLET BY MOUTH EVERY MORNING 90 Tablet 1 08/04/2024 7:53 PM EST 4 05/04/20 25 Active B-12 1000 MCG Oral Capsule Take 1 Capsule by mouth in the morning. Active Rosuvastatin Calcium 10 MG Oral Tablet (Crestor)Indica tions:Dyslipide kat TAKE ONE TABLET BY MOUTH EVERY DAY 100 Tablet 3 06/14/2024 7:25 AM EST 4 Active rOPINIRole HCl 1 MG Oral Tablet (Requip)Indicat ions:RLS (restless legs syndrome) Take 1 Tablet by mouth at bedtime. 90 Tablet 3 08/25/2024 3:09 PM EST 5 Active rOPINIRole HCl 0.5 MG Oral Tablet (Requip)Indicat ions:RLS (restless legs syndrome) Take one tablet by mouth three times a day for restless legs 180 Tablet 3 07/30/2024 9:47 AM EST 5 Active Gabapentin 100 MG Oral Capsule (Neurontin) Take two capsules by mouth three times a day 540 Capsule 3 07/30/2024 9:47 AM EST 5 Active documented as of this encounter (statuses as of 08/30/2024) Active Problems Problem Noted Date Diagnosed Date Lumbar degenerative disc disease 01/22/2023 Lumbar radiculopathy, right 01/22/2023 Primary osteoarthritis of right hip 01/22/2023 Primary osteoarthritis of right knee 01/22/2023 DALE (generalized anxiety disorder) 08/16/2022 Disorder of iron metabolism, unspecified 023 Cerebrovascular disease, arteriosclerotic, post- stroke 06/28/2021 Carotid atherosclerosis, bilateral 06/28/2021 Hereditary and idiopathic peripheral neuropathy 11/16/2019 RLS (restless legs syndrome) 05/18/2018 Major depressive disorder wi th single episode, in full remission 05/15/2017 HTN, goal below 130/80 05/06/2007 Dyslipidemia 10/27/2005 documented as of this encounter (statuses as of 08/30/2024) Resolved Problems Problem Noted Date Diagnosed Date Resolved Date Chest wall discomfort 12/20/20202022 Snoring 02/23/2019 11/07/2019 Overview (11/07/2019): Acute. Encounter for examination fo r normal comparison and control in clinical research program 10/29/2017 02/27/2020 Overview (11/12/2020): DO NOT DELETE [facility] [place] DETECT Study: Project # [id number], Spice Room Worker: Jerod Borden, PhD. SUMMARY: Goal: Establish test characteristics (sensitivity, specificity, PPV, NPV) of a circulating tumor DNA (ctDNA)-based test for cancer. Hypothesis: Circulating tumor DNA (ctDNA) and elevated protein biomarkers (together, the marker panel) can be detected in asymptomatic individuals with early cancer. Specific Aim 1: Determine the prevalence of a positive marker panel test in a prospective clinical cohort of 10,000 asymptomatic women ages 65 to 75 years. Specific Aim 2: Determine the sensitivity, specificity, positive predictive value (PPV) and negative predictive value (NPV) of a marker panel test to identify histologically proven cancers that develop within 5-years of the marker panel evaluation. CONTACTS: During normal business hours, contact study staff at ; after hours Spice Room Worker via [place] [facility] [place]eneer taping machine operator . Please contact study team before resolving/deleting from patients problem list. Study phone number: [phone]. Diagnosis changed due to Research Module. Go to Snapshot for study details. Encounter for examination fo r normal comparison and control in clinical research program 10/29/2017 03/27/2022 Overview (11/12/2020): DO NOT DELETE - [facility] DETECT Study: Project # [id number], Spice Room Worker: Chris Connell, MS, MPH. SUMMARY: Goal: Establish test characteristics (sensitivity, specificity, PPV, NPV) of a circulating tumor DNA (ctDNA)-based test for cancer. - Hypothesis: Circulating tumor DNA (ctDNA) and elevated protein biomarkers (together, the marker panel) can be detected in asymptomatic individuals with early cancer. - Specific Aim 1: Determine the prevalence of a positive marker panel test in a prospective clinical cohort of 10,000 asymptomatic women ages 65 to 75 years. - Specific Aim 2: Determine the sensitivity, specificity, positive predictive value (PPV) and negative predictive value (NPV) of a marker panel test to identify histologically proven cancers that develop within 5-years of the marker panel evaluation. - CONTACTS: During normal business hours, contact study staff at ; after hours Spice Room Worker via the [facility] [place] veneer taping machine operator . - Please contact study team before resolving/deleting from patients problem list. Study phone number: [phone]. Diagnosis changed due to Research Module. Go to Snapshot for study details. 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 07/12/2010 11/22/2021 ADVANCE DIRECTIVE INFORMATION 03/10/2005 11/16/2019 Overview (03/10/2005): Yes, Patient instructed to provide copy of advance directive for provider to review and to be scanned into Electronic Medical Record Family history of other card iovascular diseases 05/28/2004 11/16/2019 Overview (10/18/2015): ICD-10 update of inactive term IDIO PERIPH NEURPTHY NOS documented as of this encounter (statuses as of 08/30/2024) Immunizations Name Administration Dates Next Due COVID-19 mRNA, LNP-s, No Pre serve, 2-Dose Series (Moderna) 09/19/2020,08/17/2020 COVID-19, MRNA-LNP, 24-25, P R, 30MCG/0.3ML, IM, 12YRS AND ABOVE (Cinelan-ComirnatAnke) 04/19/2024 COVID-19, MRNA-LNP, PF, 30 M CG/0.3 mL, 12 YRS AND ABOVE, IM (PFIZER-Comirnaty) 05/06/2023 COVID-19, mRNA, LNP-s, PF, B ooster, 100mcg/0.5mg (Moderna) 05/25/2021 Covid-19, Mrna, Lnp-s, Pf, B ivalent, 30 Mcg, IM, 12 yrs and above (Pfizer) 05/05/2022 H1N1 2009 Influenza, IM 07/13/2009 Pneumococcal Conjugate Vacc, 13 Valent (Prevnar) 05/15/2016 Pneumococcal Polysaccharide PPV23 (Pneumovax) 01/10/2011 RSV Vac., Bivalent, Perfusio n F, Pf,0.5 Ml (Abrysvo) 05/06/2023 Seasonal Influenza Vac., MDV , IM, 0.5 mL (Fluzone) 05/22/2014,06/09/2013,07/07/2012,05/01,07/12/2010,07/12/2008,05/14/2007 ,07/23/2006 Seasonal Influenza Virus Vac cine, Unspecified Formulation 05/04/2023 Seasonal Influenza, High Dos e, Trivalent, PF, IM (Fluzone HD) 04/18/2024 Seasonal Influenza, PF, 6 M & above, IM , (FluLaval or Fluzone) 04/30/2020,05/18/2018,05/15/2017 Seasonal Influenza, Quadriva lent Hd (Fluzone Hd) 04/28/2022,04/23/2021 Seasonal Influenza, Quadriva lent, No Preserve, IM 05/15/2016,05/31/2015 Seasonal Influenza, Trivalen t, Adjuvanted, 65+ YRS, PF, (Fluad) 03/31/2019 TDAP (age 10 and older)(Boostrix) 03/31/2019 TDAP, Age 7 and older, IM (Adacel) 01/10/2009 Varicella Zoster Vaccine (Adult) 01/10/2009 Zoster Vaccine Recombinant (Shingrix) 02/21/2020 ,05/19/2019 documented as of this encounter Social History Tobacco Use Types Packs/Day Years Used Date Smoking Tobacco: Never Smokeless Tobacco: Never Tobacco Cessation:Counseling Given: Not Answered Alcohol Use Standard Drinks/Week Comments Yes 0 (1 standard drink = 0.6 oz pur e alcohol) Very rare PHQ-2 Answer Date Recorded PHQ Adult Total Score 0 02/15/2024 Hunger Vital Sign Answer Date Recorded Within the past 12 months, y ou worried that your food would run out before you got the money to buy more. Never true 02/01/20 24 Within the past 12 months, t he food you bought just didn't last and you didn't have money to get more. Never true 02/01/2024 Childcare Answer Date Recorded Do you feel overwhelmed with taking care of a child, family member or friend? No 02/01/2024 Does your family need help f inding childcare? (Household - for ages 0-17 years) Not on file 02/01/2024 Clothing Answer Date Recorded Have you been unable to get clothing when it was really needed? No 02/01/2024 Is your family able to get c lothes or diapers when needed? (Household - for ages 0-17 years) Not on file 02/01/2024 Personal Safety Answer Date Recorded Do you feel unsafe or have concerns for your saf ety? No 02/01/2024 Do you have concerns for you r family's safety? (Household - for ages 0-17 years) Not on file 02/01/2024 Utilities Answer Date Recorded Do you have trouble paying y our heating, water, or electric bill? No 02/01/2024 Is your family able to pay t he heat, water, or electric bill? (Household - for ages 0-17 years) Not on file 02/01/2024 Does your family have access to good internet? (Household - for ages 0-17 years) Not on file 02/01/2024 Employment Status Answer Date Recorded Are you unemployed or without regular income? No 02/01/2024 Does the household have a re gular source of income? (Household - for ages 0-17 years) Not on file 02/01/2024 Social Connections Answer Date Recorded How often do you feel lonely or isolated from those around you? Sometimes 02/01/2024 Financial Resource Strain Answer Date R ecorded Do you have any trouble payi ng for your medications, or do you think you might in the future? No 02/01/2024 Does your family have troubl e paying for medicine? (Household - for ages 0-17 years) Not on file 02/01/2024 Transportation Needs Answer Date Record ed Do you have trouble getting a ride to medical visits or work? (Adult - for ages 18 years and over) Not on file 02/01/2024 Does your family have a hard time getting a ride to doctors visits? (Household - for ages 0-17 years) Not on file 02/01/2024 Has lack of transportation k ept you from medical appointments, meetings, work, or from getting things needed for daily living? Check all that apply. No 02/01/2024 Do you (or your family) have trouble finding or paying for a ride (transportation)? (Household - for ages 0-17 years) Not on file 02/01/2024 Housing Stability Answer Date Recorded Do you currently live in a s helter or have no steady place to sleep at night? No 02/01/2024 Do you think you are at risk of becoming homeless? (Adult - for ages 18 years and over) Not on file 02/01/2024 Does your family worry about paying for your home or becoming homeless? (Household - for ages 0-17 years) Not on file 0 02/01/2024 Are you homeless or worried that you might be in the future? No 02/01/2024 Are you (or your family) karrie eless or worried that you might be in the future? (Household - for ages 0-17 years) Not on file Food Insecurity Answer Date Recorded Do you need food for this week? No 02/01/2024 Are you able to get enough f ood for your family? (Household - for ages 0-17 years) Not on file 02/01/2024 Does your family need food t his week? (Household - for ages 0-17 years) Not on file 02/01/2024 Do you always have enough fo od for your family? (Household - for ages 0-17 years) Not on file 02/01/2024 Comments No Sex and Gender Information Value Date Recorded Sex Assigned at Female 12/20/2021 7:59 PM EDT Legal Sex Female 5:25 AM EST Gender Identity Female 12/20/2021 7:59 PM EDT Sexual Orientation Straight 12/20/2021 7: 59 PM EDT documented as of this encounter Last Filed Vital Signs Vital Sign Reading Time Taken Comments Blood Pressure 118/64 08/30/2024 10:14 AM EST Pulse 70 08/30/2024 10:14 AM EST Temperature 35.7 C (96.3 F) 08/30/2024 1 0:14 AM EST Respiratory Rate 18 08/30/2024 10:1 4 AM EST Oxygen Saturation 99% 08/30/2024 10: 14 AM EST Inhaled Oxygen Concentration - - Weight 88.4 kg (194 lb 14.4 oz) 025 10:14 AM EST Height 158.8 cm (5' 2.52") 08/30/2024 1 0:14 AM EST Body Mass Index 35.06 08/30/2024 10:14 AM EST documented in this encounter Progress Notes * Shaka Corley, DO - 08/30/2024 10:21 AM EST Subjective Trev Pro is a 78 year old female. Chief Complaint Patient presents with Diarrhea Text in this note was generated using an [employer] documentation service. I discussed the use of a device to record and summarize our discussion today. All persons present during the encounter consented to its use. Bun/Cr 22/0.1, Na 140, K+ 4.0, Plt 268K, H/H 11.6/34.5, WBC 4.93 HPI: History of Present Illness The patient presents with a week of abdominal upset and diarrhea. She describes a sensation of fullness in the upper abdomen that moves lower and is associated with nausea but no vomiting. This is followed by diarrhea, which has occurred three to four times in the past week. Today this has been better. The symptoms do not occur immediately after eating, but a couple of hours later, and are not associated with any specific food. The symptoms have been disturbing her sleep. She denies any acid symptoms or the need to burp. She has been eating fairly well and had a normal bowel movement this morning. The patient also reports chronic knee pain due to osteoarthritis. Is scheduled for TKA with Dr Calero at [facility] next week. 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, arteriosclerotic, post-stroke Carotid atherosclerosis, bilateral DALE (generalized anxiety disorder) Disorder of iron metabolism, unspecified Lumbar degenerative disc disease Lumbar radiculopathy, right Primary osteoarthritis of right hip Primary osteoarthritis of right knee Current Outpatient Medications Medication Sig Dispense Refill MULTI-DAY TABS OR 1 daily CALCIUM + D TABS 600-200 MG-IU OR 1 daily FISH OIL 1000 MG PO CAPS one pill each day 0 0 triamcinolone acetonide (ARISTOCORT) 0.025 % ointment Apply to irritated skin twice daily as [id number] g 3 Aspirin 81 MG Oral Tablet Delayed Release Take 1 Tablet by mouth in the morning. Triamcinolone Acetonide 55 MCG/ACT Nasal Aerosol (Nasacort Allergy 24HR) Administer into nostril. FLUoxetine HCl 20 MG Oral Capsule (PROzac) TAKE ONE CAPSULE BY MOUTH EVERY DAY 90 Capsule 2 Lisinopril 2.5 MG Oral Tablet (Prinivil) TAKE ONE TABLET BY MOUTH EVERY MORNING 90 Tablet 1 B-12 1000 MCG Oral Capsule Take 1 Capsule by mouth in the morning. Rosuvastatin Calcium 10 MG Oral Tablet (Crestor) TAKE ONE TABLET BY MOUTH EVERY DAY 100 Tablet 3 rOPINIRole HCl 1 MG Oral Tablet (Requip) Take 1 Tablet by mouth at bedtime. 90 Tablet 3 rOPINIRole HCl 0.5 MG Oral Tablet (Requip) Take one tablet by mouth three times a day for restless legs 180 Tablet 3 Gabapentin 100 MG Oral Capsule (Neurontin) Take two capsules by mouth three times a day 540 Capsule3 No current facility-administered medications for this visit. Past Medical History: Diagnosis Date Hereditary and idiopathic peripheral neuropathy Peripheral Neuropathy HTN, goal below 140/80 Hyperlipidemia Past Surgical History: Procedure Laterality Date ARTHROPLASTY KNEE TOTAL Left 12/22/2023 Dr Calero [place]IV[place] TONSILLECTOMY & ADENOIDECTOMY LESS THAN AGE 12 Review of patient's allergies indicates: Allergen Reactions Sulfa Antibiotics anaphyllaxis Family History Problem Relation Name Age of Onset Heart Disorder Mother CHF Breast Cancer Mother 73 Heart Disorder Father 55 [place], sudden Other (vertigo) Sister Other (restless leg syndrome) Sister Diabetes Grandfather (Paternal) Other (idiopathic thrombocytopenic purpura) Daughter Family Status Relation Status Mo Fa Sis (Not Specified) Sis (Not Specified) PGFA (Not Specified) Anu Alive Social History Socioeconomic History Marital status: Spouse name: Not on file Number of children: Not on file Years of education: Not on file Highest education level: Not on file Occupational History Not on file Tobacco Use Smoking status: Never Smokeless tobacco: Never Vaping Use Vaping status: Never Used Substance and Sexual Activity Alcohol use: Yes Comment: Very rare Drug use: No Sexual activity: Yes Partners: Male Other Topics Concern Not on file Social History Narrative Not on file Social Needs Financial Resource Strain: Low Risk (02/01/2024) Financial Resource Strain Do you have any trouble paying for your medications, or do you think you might in the future? (Adult - for ages 18 years and over): No Does your family have trouble paying for medicine? (Household - for ages 0-17 years): Not on file Food Insecurity: No Food Insecurity (02/01/2024) Food Insecurity Do you need food for this week? (Adult - for ages 18 years and over): No Are you able to get enough food for your family? (Household - for ages 0-17 years): Not on file Does your family need food this week? (Household - for ages 0-17 years): Not on file Do you always have enough food for your family? (Household - for ages 0-17 years): Not on file Transportation Needs: No Transportation Needs (02/01/2024) Transportation Needs Do you have trouble getting a ride to medical visits or work? (Adult - for ages 18 years and over):Not on file Does your family have a hard time getting a ride to doctors visits? (Household - for ages 0-17 years): Not on file Has lack of transportation kept you from medical appointments, meetings, work, or from getting things needed for daily living? Check all that apply. (Adult - for ages 18 years and over): No Do you (or your family) have trouble finding or paying for a ride (transportation)? (Household - for ages 0-17 years): Not on file Social Connections: Socially Integrated (02/01/2024) Social Connections How often do you feel lonely or isolated from those around you? (Adult - for ages 18 years and over): Sometimes Housing Stability: Low Risk (02/01/2024) Housing Stability Do you currently live in a halfway or have no steady place to sleep at night? (Adult - for ages 18 years and over): No Do you think you are at risk of becoming homeless? (Adult - for ages 18 years and over): Not on file Does your family worry about paying for your home or becoming homeless? (Household - for ages 0-17 years): Not on file Are you homeless or worried that you might be in the future? (Adult - for ages 18 years and over): No Are you (or your family) homeless or worried that you might be in the future? (Household - for ages0-17 years): Not on file Review of Systems Constitutional: Negative for chills and fever. HENT: Negative for congestion, sore throat and trouble swallowing. Eyes: Negative for photophobia and itching. Respiratory: Negative for apnea and cough. Cardiovascular: Negative for chest pain and palpitations. Gastrointestinal: Positive for abdominal distention and diarrhea. Negative for abdominal pain, blood in stool, nausea and vomiting. Genitourinary: Negative for dysuria and frequency. Musculoskeletal: Negative for arthralgias and myalgias. Skin: Negative for pallor and rash. Neurological: Negative for dizziness, light-headedness and headaches. Psychiatric/Behavioral: Negative for sleep disturbance. The patient is not nervous/anxious. Objective BP 118/64 (BP Site: Left Arm, BP Position: Sitting, BP Cuff Size: Regular) | Pulse 70 | Temp 96.3 F (35.7 C) (Tympanic) | Resp 18 | Ht 5' 2.52" (1.588 m) | Wt 194 lb 14.4 oz (88.4 kg) | SpO2 99% | BMI 35.06 kg/m | BSA 1.97 m Physical Exam Constitutional: General: She is not in acute distress. Appearance: She is not ill-appearing. HENT: Head: Normocephalic and atraumatic. Right Ear: Tympanic membrane, ear canal and external ear normal. Left Ear: Tympanic membrane, ear canal and external ear normal. Nose: Nose normal. No congestion or rhinorrhea. Mouth/Throat: Mouth: Mucous membranes are moist. Pharynx: Oropharynx is clear. Eyes: General: No scleral icterus. Extraocular Movements: Extraocular movements intact. Conjunctiva/sclera: Conjunctivae normal. Pupils: Pupils are equal, round, and reactive to light. Cardiovascular: Rate and Rhythm: Normal rate and regular rhythm. Pulses: Normal pulses. Heart sounds: Normal heart sounds. No murmur heard. No friction rub. No gallop. Pulmonary: Effort: Pulmonary effort is normal. Breath sounds: Normal breath sounds. No wheezing, rhonchi or rales. Abdominal: General: Bowel sounds are normal. There is no distension. Palpations: Abdomen is soft. There is no mass. Tenderness: There is no abdominal tenderness. There is no right CVA tenderness, left CVA tenderness, guarding or rebound. Musculoskeletal: General: No deformity. Normal range of motion. Cervical back: Normal range of motion and neck supple. Right lower leg: No edema. Left lower leg: No edema. Lymphadenopathy: Cervical: No cervical adenopathy. Skin: General: Skin is warm and dry. Coloration: Skin is not jaundiced. Findings: No rash. Neurological: General: No focal deficit present. Mental Status: She is oriented to person, place, and time. Cranial Nerves: No cranial nerve deficit. Sensory: No sensory deficit. Motor: No weakness. Psychiatric: Mood and Affect: Mood normal. Behavior: Behavior normal. ASSESSMENT/PLAN: Abdominal bloating (Primary) - US ABDOMEN COMPLETE; Future; Expected date: 08/30/2024 Plan: Patient presents for intermittent abdominal bloating, diarrhea. Seems better last 24 hours orso. No concerning findings on exam. Not c/w pancreatitis. Likely Gastroenteritis, infectious. Continue to monitor for any specific food triggers Would like to evaluate GB/ Patient in agreement. US RUQ Abdomen ordered for Néstor Garrido. Will follow up Consider Famotidine 10mg 1-2 times daily PRN dyspepsia. Counseled on ADRs for which to monitor Reviewed recent CMP, CBC, PT/INR, ESR/CRP done at [facility] and everything looked ok. Continue other medications /management. Keep well hydrated. Follow Up: Return if symptoms worsen or fail to improve, for Follow up next routine with PCP as scheduled. | For: Follow up next routine with PCP as scheduled | Check-out note: Follow up pending labsresults US abdomen Néstor Garrido I spent a total of 30-39 minutes (exact time 36 mins) on the date of service in preparation, delivery, and documentation of the care provided to Trev Pro excluding any time spent in the performance of separately billed services or time spent by another provider/QHP. Shaka Corley DO documented in this encounter Nursing Notes * Farzana Newby CMA - 08/30/2024 10:13 AM EST Patient presents today with complaints of diarrhea and abdominal pain x 1 week. She states that shefeels bloated/extremely full, especially after eating. She doesn't think it matters what she eats, it happens regardless. documented in this encounter Plan of Treatment Upcoming Encounters Date Type Department Care Team (Late st Contact Info) Description 08/31/2024 9:15 AM EST Imaging Radiology [facility] [address] [id number] 10/24/2024 11:30 AM EDT Imaging Radiology [facility] [address]st Floor, [place] [address] [place] [address] 12/21/2024 1:00 PM EDT Office Visit Family Practice [facility] [address] [place] [address] Tana Garza DO [address] [place] [place] [address] 02/17/2025 10:00 AM EDT [facility] Only [facility] [address] [place] [address] [place], Nurse Annual Wellness [facility] [address] [place] [address] Scheduled Orders Name Type Priority Associated Diagnoses Orde r Schedule US ABDOMEN COMPLETE Medical Imaging Routine Abdominal bloating Expected: 08/30/2024, Expires: 09/27/2025 Health Maintenance Due Date Last Done Comments COVID-19 Vaccine ( season) 2024 04/19/2024, 05/06/2023, 05/05/2022, Additional history exists Adult Wellness Visit 02/14/2025 02/15/2024, 02/14/20 23 Depression Monitoring 02/14/2025 02/15/2024 GFR 03/10/2025 03/10/2024, 01/25, 05/07/2021, Additional history exists Albumin/Creatinine Ratio 12/02/2026 12/03/2023, 04/27 DXA Scan 08/16/2027 08/16/2018, 07/29, 08/25/2011, Additional history exists DTap/Tdap Vaccines (3 - Td or Tdap) 03/31/2029 03/31/2019, 01/10/2009, 12/16/1994 Colonoscopy Discontinued 09/09/2004 Pneumococcal Vaccine: 50+ Years Completed 05/15/2016, 01/10/2011 Zoster Vaccines Completed 02/21/2020, 04/27, 01/10/2009 Influenza Vaccine (FLU shot) Completed 04/18/2024, 04/18/2024, 05/04/2023, Additional history exists HPV (Gardasil) Vaccine Aged Out No lo nger eligible based on patient's age to complete this topic Hepatitis B Vaccine Aged Out No longe r eligible based on patient's age to complete this topic MENINGOCOCCAL (MENACTRA/MENVEO) Aged Out No longer eligible based on patient's age to complete this topic documented as of this encounter Medical Devices Not on filedocumented as of this encounter Visit Diagnoses Diagnosis Abdominal bloating- Primary Flatulence, eructation, and gas pain documented in this encounter Advance Directives Documents on File Type Date 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
--- OUTSIDE RECORDS SUMMARY | 2024-10-04 05:27 | External Medical Summary | Summary of Care ---
Author Name Unknown Organization [facility] Address [address] [place] [address] Phone [phone] Care Team Providers Care Supervisor Instrument Maintenance Name Role Phone Tana Garza DO Primary Care Provider [phone] Reason for Visit * Reason Onset Date Comments Order Request 09/26/2024 Encounter Details Date Type Department Care Team (Late st Contact Info) Description 09/26/2024 Telephone Family Practice [facility] [address] [place] [address] Tana Garza DO [address] [place] [address] Order Request Allergies Active Allergy Reactions Criticality Noted Date Comments Sulfa Antibiotics 01/22/1999 anaphyllaxis documented as of this encounter (statuses as of 09/30/2024) Medications MULTI-DAY TABS OR 1 daily 1 [...] BY MOUTH EVERY DAY 100 Tablet 3 09/20/2024 5:40 PM EST 4 Active rOPINIRole HCl 1 MG [...] 3 07/30/2024 9:47 AM EST 5 Active Acetaminophen 500 MG Oral Tablet (Tylenol Extra Strength) Take 1 Tablet by mouth every 6 hours as needed. Active Ibuprofen 200 MG Oral Capsule (Advil) Take 2 Capsules by mouth every 4 hours as needed. Active Dicyclomine HCl 10 MG Oral Capsule (Bentyl)Indicat ions:Abdominal pain, generalized,Abd ominal bloating Take 1 Capsule by mouth 4 times a day as needed for Other (bloating). For abdominal pain 60 Capsule 11 5 Active documented as of this encounter (statuses as of 09/30/2024) Active Problems Problem Noted Date Diagnosed Date [...] as of this encounter (statuses as of 09/30/2024) Resolved Problems Problem Noted Date Diagnosed Date Resolved Date Chest wall discomfort 12/20/20202022 Snoring 02/23/2019 11/07/2019 Overview (11/07/2019): Acute. Encounter for examination fo r normal comparison and control in clinical research program 10/29/2017 02/27/2020 Overview (11/12/2020): DO NOT DELETE [facility] DETECT Study: Project # [id number], Medical Insurance Collector: Jerod Borden, PhD. SUMMARY: Goal: Establish test [...] contact study staff at ; after hours Medical Insurance Collector via the [facility] hospital still operator helper . Please contact study team before resolving/deleting from patients problem list. Study phone number: [phone]. Diagnosis changed due to Research Module. Go to Snapshot for study details. Encounter for examination fo r normal comparison and control in clinical research program 10/29/2017 03/27/2022 Overview (11/12/2020): DO NOT DELETE - [facility] Study: Project # [id number], Medical Insurance Collector: Chris Connell, MS, MPH. SUMMARY: Goal: Establish [...] contact study staff at ; after hours Medical Insurance Collector via the [facility] hospital still operator helper . - Please contact study team before resolving/deleting from patients problem list. Study phone number: [phone]. Diagnosis changed due to Research Module. Go [...] as of this encounter (statuses as of 09/30/2024) Immunizations Name Administration Dates Next Due COVID-19 mRNA, LNP-s, No Pre serve, 2-Dose Series (Moderna) 09/19/2020,08/17/2020 COVID-19, MRNA-LNP, 24-25, P R, 30MCG/0.3ML, IM, 12YRS AND ABOVE [facility] 04/19/2024 COVID-19, MRNA-LNP, PF, 30 M CG/0.3 mL, 12 YRS AND ABOVE, IM ([email or web address]) 05/06/2023 COVID-19, mRNA, LNP-s, PF, B ooster, [...] Date Smoking Tobacco: Never Smokeless Tobacco: Never Alcohol Use Standard Drinks/Week Comments Yes 0 [...] ages 0-17 years) Not on file 02/01/2024 Food Insecurity Answer Date Recorded Within the past 12 months, y ou worried that your food would run out before you got the money to buy more. Never true 02/01/20 24 Within the past 12 months, t he food you bought just didn't last and you didn't have money to get more. Never true 02/01/2024 Do you need food for this week? No 02/01/2024 Comments No Sex and Gender Information Value Date Recorded Sex Assigned at Female 12/20/2021 7:59 PM EDT Legal Sex Female 5:25 AM EST Gender Identity Female 12/20/2021 7:59 PM EDT Sexual Orientation Straight 12/20/2021 7: 59 PM EDT documented as of this encounter Miscellaneous Notes * Telephone Encounter - Kristine Balderrama RN - 09/29/2024 4:26 PM EST Called [employer] and gave them below code. * Telephone Encounter - Juventino Guo OSA - 09/28/2024 8:30 AM EST Caller requesting the following information to be faxed: Name/Company of caller: Estrella with [employer] Information requested to be faxed: [employer] calling back to advise that codes that were sent are non covered codes , requesting call back can take a verbal on same order for cologard testing give code Z12.11. Fax number: [phone] Attention to Name/Company: [employer] Any additional information?: [phone] * Telephone Encounter - Renaldo Garza DO - 09/26/2024 3:53 PM EST Please call and give code Z12.11. * Telephone Encounter - Kika Allen OSA - 09/26/2024 10:36 AM EST Lashawn with [employer] calling to advise that codes that were sent are non covered codes , requesting call back can take a verbal on same order for cologard testing documented in this encounter Plan of Treatment Upcoming Encounters Date Type Department Care Team (Late st Contact Info) Description 10/24/2024 11:30 AM EDT Imaging Radiology [facility] 1st Floor, [place] [address] [place] [phone] 12/21/2024 1:00 PM EDT Office Visit Family Practice [facility] [address] [place] [address] Tana Garza DO [address] [place] [address] 02/17/2025 10:00 AM EDT Nurse Only Ancillary [facility] [address] [place] [address] [facility], Nurse Annual Wellness [facility] [address] [facility] [place] [address] Health Maintenance Due Date Last Done Comments COVID-19 Vaccine ( season) 2024 04/19/2024, 05/06/2023, 05/05/2022, Additional history exists Adult Wellness Visit 02/14/2025 02/15/2024, 02/14/20 23 Depression Monitoring 02/14/2025 02/15/2024 GFR 09/09/2025 09/09/2024, 02/24, 02/20/2023, Additional history exists Albumin/Creatinine Ratio 12/02/2026 12/03/2023, [...] on patient's age to complete this topic Meningitis B Vaccine (Bexsero/Trumemba) Aged Out No longer eligible based on patient's age to complete this topic documented as of this encounter Medical Devices Not on filedocumented as of this encounter Advance Directives Documents on File Type Date 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
--- OUTSIDE RECORDS SUMMARY | 2024-10-04 05:27 | External Medical Summary | Summary of Care ---
Author Name Unknown Organization [facility] Address [address] [place] [address] Phone [phone] Care Team Providers Care Manager Employment Name Role Phone Tana Garza DO Primary Care Provider [phone]- [phone] Reason for Visit * Reason Comments Outpatient Testing Encounter Details Date Type Department Care Team (Late st Contact Info) Description 09/09/2024 10:20 AM EST Laboratory Laboratory [facility] [address] [place] [id number] [facility] Lab [facility] [address] [facility], [place] [address] Abdominal pain, generalized; Abdominal bloating Allergies Active Allergy Reactions Criticality Noted Date Comments Sulfa Antibiotics 01/22/1999 anaphyllaxis documented as of this encounter (statuses as of 09/09/2024) Medications MULTI-DAY TABS OR 1 daily 1 [...] as of this encounter (statuses as of 09/09/2024) Active Problems Problem Noted Date Diagnosed Date [...] as of this encounter (statuses as of 09/09/2024) Resolved Problems Problem Noted Date Diagnosed Date Resolved Date Chest wall discomfort 12/20/20202022 Snoring 02/23/2019 11/07/2019 Overview (11/07/2019): Acute. Encounter for examination fo r normal comparison and control in clinical research program 10/29/2017 02/27/2020 Overview (11/12/2020): DO NOT DELETE [facility] DETECT Study: Project # [id number], Finished Goods Stock Clerk: Jerod Borden, PhD. SUMMARY: Goal: Establish test [...] contact study staff at ; after hours Finished Goods Stock Clerk via the [facility] hospital induction furnace operator . Please contact study team before resolving/deleting from patients problem list. Study phone number: [phone]. Diagnosis changed due to Research Module. Go to Snapshot for study details. Encounter for examination fo r normal comparison and control in clinical research program 10/29/2017 03/27/2022 Overview (11/12/2020): DO NOT DELETE - [facility] DETECT Study: Project # [id number], Finished Goods Stock Clerk: Chris Connell, MS, MPH. SUMMARY: Goal: Establish [...] contact study staff at ; after hours Finished Goods Stock Clerk via the [facility] hospital induction furnace operator . - Please contact study team before resolving/deleting from patients problem list. Study phone number: [phone]. Diagnosis changed due to Research Module. Go [...] as of this encounter (statuses as of 09/09/2024) Immunizations Name Administration Dates Next Due COVID-19 mRNA, LNP-s, No Pre serve, 2-Dose Series (Moderna) 09/19/2020,08/17/2020 COVID-19, MRNA-LNP, 24-25, P R, 30MCG/0.3ML, IM, 12YRS AND ABOVE (Pfizer-ComirnatMOGL) 04/19/2024 COVID-19, MRNA-LNP, PF, 30 M CG/0.3 mL, 12 YRS AND ABOVE, IM (Apollidon-ComirnatMOGL) 05/06/2023 COVID-19, mRNA, LNP-s, PF, B ooster, [...] PM EDT documented as of this encounter Plan of Treatment Upcoming Encounters Date Type Department Care Team (Late st Contact Info) Description 09/15/2024 11:00 AM EST Imaging Radiology [address] [place] [address] 10/24/2024 11:30 AM EDT Imaging Radiology [address], [place] [address] [place] [address] 12/21/2024 1:00 PM EDT Office Visit Family Practice [facility] [address] [place] [address] Tana Garza, [address] [address] 02/17/2025 10:00 AM EDT Nurse Only Ancillary [facility] [address] [place] [address] [place], Nurse Annual Wellness [facility] [place] [address] Pending Results Name Type Priority Associated Diagnoses Date /Time COMPREHENSIVE METABOLIC PANEL Lab Routine Abdominal pain, generalized Abdominal bloating 09/09/2024 10:23 AM EST LIPASE Lab Routine Abdominal pain, generalized Abdominal bloating 09/09/2024 10:23 AM EST Health Maintenance Due Date Last Done Comments COVID-19 Vaccine ( season) 2024 04/19/2024, 05/06/2023, 05/05/2022, Additional history exists Adult Wellness Visit 02/14/2025 02/15/2024, 02/14/20 Depression Monitoring 02/14/2025 02/15/2024 GFR 03/10/2025 03/10/2024, [...] Not on filedocumented as of this encounter Procedures Procedure Name Priority Date/Time Associated Diagnosis Comments CBC Routine 09/09/2024 10:23 AM EST Abdominal pain, generalized Abdominal bloating documented in this encounter Results * CBC (09/09/2024 10:23 AM EST) WBC 6.60 4.00 - 10.80 K/uL 09/09/2024 10:32 AM EST [facility]02 RBC 3.98 3.85 - 5.15 M/uL 09/09/2024 10:32 AM EST [facility]-02 HGB 12.3 12.0 - 15.3 g/dL 09/09/2024 10:32 AM [facility] 56- HCT 37.6 36.0 - 45.2 % 09/09/2024 10:32 AM [facility] 56-02 MCV 94.5 81.5 - 97.5 fL 09/09/2024 10:32 AM [facility] 56-02 MCH 30.9 27.0 - 34.0 pg 09/09/2024 10:32 AM [facility] 56-02 MCHC 32.7 32.0 - 36.0 g/dL 09/09/2024 10:32 AM [facility] 56-02 RDW 12.8 11.5 - 15.5 % 09/09/2024 10:32 AM [facility] 56-02 PLT 276 140 - 400 K/uL 09/09/2024 10:32 AM [facility] 56-02 MPV 9.5 6.6 - 11.1 fL 09/09/2024 10:32 AM [facility] 56-02 Blood Venous blood specimen / Unknown Venipuncture / Unknown 09/09/2024 10:23 AM EST 09/09/2024 10:23 AM EST us Renaldo Garza DO LAB BLOOD ORDERABLES Final Result [facility] [address] [place] [address] documented in this encounter Visit Diagnoses Diagnosis Abdominal pain, generalized Abdominal bloating Flatulence, eructation, and gas pain documented in this encounter Advance Directives Documents on File Type Date Recorded 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
--- OUTSIDE RECORDS SUMMARY | 2024-10-04 05:27 | External Medical Summary ---
Author Name Unknown Address Unknown Organization K09:[facility]-[address] [place] [address] Laboratory Report Ordering Provider Test Date Status CHERYL FRASER 09/09/2024 10:23:48 Final Observation Date Value Abnormality Reference (Units ) Status BUN 09/09/2024 10:23:48 18 6-20 (mg/dL) Final Creatinine 09/09/2024 10:23:48 0.7 0.5-1.0 (mg/dL) Final Glomerular filtration rate/1.73 sq M.predicted [Volume Rate/Area] in Serum, Plasma or Blood by Creatinine-based formula (CKD-EPI) 09/09/2024 10:23:48 90 >=60 (mL/min) Final eGFR is calculated based on the CKD-EPI 2020 equation. Sodium 09/09/2024 10:23:48 142 135-146 (m mol/L) Final Potassium 09/09/2024 10:23:48 4.2 3.5-5.1 (m mol/L) Final Cl 09/09/2024 10:23:48 104 98-107 (mm ol/L) Final CO2 09/09/2024 10:23:48 26 22-32 (mmo l/L) Final Anion gap 09/09/2024 10:23:48 12 7-15 (mmol /L) Final Glucose 09/09/2024 10:23:48 87 70-120 (mg /dL) Final Albumin 09/09/2024 10:23:48 5.0 3.8-5.0 (g /dL) Final AST (Aspartate aminotransferase) 09/09/2024 10:23:48 32 10-35 (U/L) Fin al Alk Phos 09/09/2024 10:23:48 96 35-130 (U/ L) Final Bilirubin, Total 09/09/2024 10:23:48 0.6 <=1 .2 (mg/dL) Final Calcium 09/09/2024 10:23:48 10.3 Above high normal 8. 4-10.2 (mg/dL) Final Protein 09/09/2024 10:23:48 7.5 6.0-8.3 (g /dL) Final ALT (Alanine aminotransferase) 09/09/2024 10:23:48 35 10-35 (U/L) Evgeny rebolledo Performing Location [facility] [address] [place] [address]
--- OUTSIDE RECORDS SUMMARY | 2024-10-04 05:27 | External Medical Summary ---
Author Name Unknown Address Unknown Organization K09:[facility] [place] [address] [place] [address] Laboratory Report Ordering Provider Test Date Status CHERYL FRASER 09/09/2024 10:23:48 Final Observation Date Value Abnormality Reference (Units ) Status WBC, Total 09/09/2024 10:23:48 6.60 4.00-10.8 0 (K/uL) Final RBC 09/09/2024 10:23:48 3.98 3.85-5.15 (M/uL) Final Hemoglobin 09/09/2024 10:23:48 12.3 12.0-15.3 (g/dL) Final HCT 09/09/2024 10:23:48 37.6 36.0-45.2 (%) Final MCV 09/09/2024 10:23:48 94.5 81.5-97.5 (fL) Final MCH 09/09/2024 10:23:48 30.9 27.0-34.0 (pg) Final MCHC 09/09/2024 10:23:48 32.7 32.0-36.0 (g/dL) Final RDW 09/09/2024 10:23:48 12.8 11.5-15.5 (%) Final Platelets 09/09/2024 10:23:48 276 140-400 (K /uL) Final MPV 09/09/2024 10:23:48 9.5 6.6-11.1 ( fL) Final Performing Location [facility] [place] [address]
--- OUTSIDE RECORDS SUMMARY | 2024-10-04 05:27 | External Medical Summary | Summary of Care ---
Author Name Unknown Organization [facility] Address [address] [place] [address] Phone [phone] Care Team Providers Care Lokie Engineer Name Role Phone Tana Garza DO Primary Care Provider [phone] Reason for Referral * Precert (Within 10 days (routine)) - Authorized Specialty Diagnoses / Procedures Referred By Contac t Referred To Contact Radiology Diagnoses Abdominal pain, generalized Abdominal bloating Chronic diarrhea Procedures CT ABD/PELVIS W IV AND W ORAL CONTRAST Renaldo Garza DO [address] [place] [address] [address] Phone: tel: fax: Referral ID Status Reason Start Date Expiration Date V isits Requested Visits Authorized [id number] Authorized 09/09/2024 999 999 Reason for Visit * Reason Comments Abdominal Pain Encounter Details Date Type Department Care Team (Late st Contact Info) Description 09/09/2024 9:40 AM EST Office Visit Family Practice [facility] [place] [address] [place] [address] Renaldo Garza DO [address] [address] Abdominal pain, generalized*; Major depressive disorder with single episode, in full remission (HCC); HTN, goal below 130/80; Disorder of iron metabolism, unspecified; Dyslipidemia; Abdominal bloating; Chronic diarrhea; DALE (generalized anxiety disorder) Allergies Active Allergy Reactions Criticality Noted Date [...] 540 Capsule 3 07/30/2024 9:47 AM EST Active Acetaminophen 500 MG Oral Tablet (Tylenol [...] 10/29/2017 02/27/2020 Overview (11/12/2020): DO NOT DELETE [facility] DETECT Study: Project # [id number], Player Manager: Jerod Borden, PhD. SUMMARY: Goal: Establish test [...] contact study staff at ; after hours Player Manager via the [facility] speed operator . Please contact study team before resolving/deleting from patients problem list. Study phone number: [phone]. Diagnosis changed due to Research Module. Go to Snapshot for study details. Encounter for examination fo r normal comparison and control in clinical research program 10/29/2017 03/27/2022 Overview (11/12/2020): DO NOT DELETE - [facility] DETECT Study: Project # [id number], Player Manager: Chris Connell, MS, MPH. SUMMARY: Goal: Establish [...] contact study staff at ; after hours Player Manager via the [facility] speed operator . - Please contact study team before resolving/deleting from patients problem list. Study phone number: [phone]. Diagnosis changed due to Research Module. Go [...] P R, 30MCG/0.3ML, IM, 12YRS AND ABOVE (Pfizer-Comirnaty) 04/19/2024 COVID-19, MRNA-LNP, PF, 30 M CG/0.3 [...] 02/01/2024 Does the household have a re lar source of income? (Household - for ages [...] Sign Reading Time Taken Comments Blood Pressure 126/74 09/09/2024 9:47 AM EST Pulse 72 09/09/2024 9:47 AM EST Temperature 36.6 C (97.9 F) 09/09/2024 9:47 AM ES T Respiratory Rate 16 09/09/2024 9:47 AM EST Oxygen Saturation - - Inhaled Oxygen Concentration - - Weight 88 kg (194 lb) 09/09/2024 9:47 AM EST Height - - Body Mass Index 34.9 08/30/2024 10:14 AM EST documented in this encounter Progress Notes * Renaldo Garza, DO - 09/09/2024 9:54 AM EST Subjective: Trev Pro is a 78 year old female. Chief Complaint Patient presents with Abdominal Pain HPI: Scheduled for knee surgery but had to cancel. About a month ago she ot an abdominal bloating after dinner. Slowly worked it's way down over time.Napoleon nausea at the start and then more towards diarrhea at the end. Eventually did have diarrhea. Thought it was something she ate at first. Went away for a week. Similar episode later on. IT has happened about 6 time now. Diarrhea for an hour or two. Never actually threw up. Not really abdominal bloating. Some pressure. No blood or dark black in her stool. No change in urine. Last night it started around 4 PM and then to 3 AM. No acid indigestion. US reviewed. Has not tried Pepcid. PMHx, meds, and allergies reviewed Patient Active Problem List Diagnosis Dyslipidemia HTN, [...] Apply to irritated skin twice daily as [id number] g 3 Aspirin 81 MG Oral Tablet [...] mouth three times a day 540 Capsule3 Acetaminophen 500 MG Oral Tablet (Tylenol Extra Strength) Take 1 Tablet by mouth every 6 hours as needed. Ibuprofen 200 MG Oral Capsule (Advil) Take 2 Capsules by mouth every 4 hours as needed. No current facility-administered medications for this visit. Review of patient's allergies indicates: Allergen Reactions Sulfa Antibiotics anaphyllaxis OBJECTIVE: BP 126/74 | Pulse 72 | Temp 97.9 F (36.6 C) (Tympanic) | Resp 16 | Wt 194 lb (88 kg) | BMI 34.90 kg/m | BSA 1.97 m Estimated body mass index is 34.9 kg/m as calculated from the following: Height as of 08/30/24: 5' 2.52" (1.588 m). Weight as of this encounter: 194 lb (88 kg). BP Readings from Last 3 Encounters: 09/09/24 126/74 08/30/24 118/64 06/02/24 122/78 Wt Readings from Last 3 Encounters: 09/09/24 194 lb (88 kg) 08/30/24 194 lb 14.4 oz (88.4 kg) 06/02/24 186 lb 14.4 oz (84.8 kg) ROS: Negative except for above PHYSICAL EXAM: General: alert, healthy, and no distress Head: Normocephalic, No masses, lesions, tenderness or abnormalities Heart: regular rate & rhythm, no murmur, and no gallops Lungs: chest symmetric with normal AP diameter, no chest deformities noted, no chest wall tenderness, lungs clear to auscultation Abdomen: abdomen soft, non-tender, normal bowel sounds, no masses or organomegaly, and no rebound or guarding ASSESSMENT/Plan Abdominal pain, generalized (Primary) - Dicyclomine HCl 10 MG Oral Capsule (Bentyl); Take 1 Capsule by mouth 4 times a day as needed for Other (bloating). For abdominal pain - COLOGUARD - COMPREHENSIVE METABOLIC PANEL; Future; Expected date: 09/09/2024 - CBC; Future; Expected date: 09/09/2024 - LIPASE; Future; Expected date: 09/09/2024 - CT ABD/PELVIS W IV AND W ORAL CONTRAST Major depressive disorder with single episode, in full remission (HCC) HTN, goal below 130/80 Disorder of iron metabolism, unspecified Dyslipidemia Abdominal bloating - Dicyclomine HCl 10 MG Oral Capsule (Bentyl); Take 1 Capsule by mouth 4 times a day as needed for Other (bloating). For abdominal pain - COLOGUARD - COMPREHENSIVE METABOLIC PANEL; Future; Expected date: 09/09/2024 - CBC; Future; Expected date: 09/09/2024 - LIPASE; Future; Expected date: 09/09/2024 - CT ABD/PELVIS W IV AND W ORAL CONTRAST Chronic diarrhea - CT ABD/PELVIS W IV AND W ORAL CONTRAST DALE (generalized anxiety disorder) We discussed that this could potentially be IBS and associated some with her mood. However that is a diagnosis of exclusion and we should check blood work and a cT to rule out something more concerning. In the meantime I asked her to keep a close diary of what she is eating and doing in and around the episodes and try Bentyl or Pepcid when they occur. The above was discussed and understanding was expressed. Renaldo Garza DO documented in this encounter Nursing Notes * Mela Nunez LPN - 09/09/2024 9:44 AM EST Patient reports recurrent bloating and tightness across her upper midriff and sometimes it moves just below the belt line. She says when it's higher upper she feels like she's going to vomit, when it's lower she feels like she's going to have diarrhea. Has not had any vomiting but has had a few episodes of diarrhea. This started about a month ago. Was scheduled for knee surgery on Thursday that had to be cancelled due to symptoms. She saw Dr. Corley on 08/30/24. Had an US on 08/31/24 but no significant findings were reported. documented in this encounter Plan of Treatment Upcoming Encounters Date Type Department Care Team (Late st Contact Info) Description 09/15/2024 11:00 AM EST Imaging Radiology [facility] [address] [facility], [place] [address] [phone] 10/24/2024 11:30 AM EDT Imaging Radiology [facility], [place] [address] [place] [phone] 12/21/2024 1:00 PM EDT Office Visit Family Practice [facility] [address] [facility] [address] [place] [address] Tana Garza DO [address] [facility] [address] [place] [address] 02/17/2025 10:00 AM EDT Nurse Only Ancillary [facility] [address] [facility] [place] [place] [address] [facility], Nurse Annual Wellness [facility] [address] [facility] [place] [place] [address] Pending Results Name Type Priority Associated Diagnoses Date /Time LIPASE Lab Routine Abdominal pain, generalized Abdominal bloating 09/09/2024 10:23 AM EST Scheduled Orders Name Type Priority Associated Diagnoses Order Schedule COLOGUARD Lab Unrestricted Lab Abdominal pain, generalized Abdominal bloating Ordered: 09/09/2024 LIPASE Lab Routine Abdominal pain, generalized Abdominal bloating Expected: 09/09/2024 (Approximate), Expires: 09/09/2025 CT ABD/PELVIS W IV AND W ORAL CONTRAST Medical Imaging Routine Abdominal pain, generalized Abdominal bloating Chronic diarrhea Ordered: 09/09/2024 Health Maintenance Due Date Last Done Comments [...] Not on filedocumented as of this encounter Results * CBC (09/09/2024 10:23 AM EST) WBC 6.60 4.00 - 10.80 K/uL 09/09/2024 10:32 AM EST [facility] 56- RBC 3.98 3.85 - 5.15 M/uL 09/09/2024 10:32 AM EST [facility] 56-02 HGB 12.3 12.0 - 15.3 g/dL 09/09/2024 10:32 AM EST [facility] 56-02 HCT 37.6 36.0 - 45.2 % 09/09/2024 10:32 AM EST [facility] 56-02 MCV 94.5 81.5 - 97.5 fL 09/09/2024 10:32 AM EST [facility] 56-02 MCH 30.9 27.0 - 34.0 pg 09/09/2024 10:32 AM EST [facility] 56-02 MCHC 32.7 32.0 - 36.0 g/dL 09/09/2024 10:32 AM EST [facility] 56-02 RDW 12.8 11.5 - 15.5 % 09/09/2024 10:32 AM [facility] 56-02 PLT 276 140 - 400 K/uL 09/09/2024 10:32 AM [facility] 56-02 MPV 9.5 6.6 - 11.1 fL 09/09/2024 10:32 AM [facility] 56-02 Blood Venous blood specimen / Unknown Venipuncture / Unknown 09/09/2024 10:23 AM EST 09/09/2024 10:23 AM EST Renaldo Garza DO LAB BLOOD ORDERABLES Final Result [facility] [address] [place], [place] [id number] * (ABNORMAL) COMPREHENSIVE METABOLIC PANEL (09/09/2024 10:23 AM EST) BUN 18 6 - 20 mg/dL 09/09/2024 1:05 PM [facility] 56- CREATININE 0.7 0.5 - 1.0 mg/dL 09/09/2024 1:05 PM [facility] 56- EGFR 90 >=60 mL/min 09/09/2024 1:05 PM [facility] 56- Comment:eGFR is calculated b ased on the CKD-EPI 2020 equation. SODIUM 142 135 - 146 mmol/L 09/09/2024 1:05 PM [facility] 56- POTASSIUM 4.2 3.5 - 5.1 mmol/L 09/09/2024 1:05 PM [facility] 56- CHLORIDE 104 98 - 107 mmol/L 09/09/2024 1:05 PM [facility] 56- CO2 26 22 - 32 mmol/L 09/09/2024 1:05 PM [facility] 56- ANION GAP 12 7 - 15 mmol/L 09/09/2024 1:05 PM [facility] 56- GLUCOSE 87 70 - 120 mg/dL 09/09/2024 1:05 PM [facility] 56- Albumin 5.0 3.8 - 5.0 g/dL 09/09/2024 1:05 PM [facility] 56- AST 32 10 - 35 U/L 09/09/2024 1:05 PM [facility] 56-02 Alkaline Phosphatase 96 35 - 130 U/L 09/09/2024 1:05 PM [facility] 56-02 Bilirubin, Total 0.6 <=1.2 mg/dL 09/09/2024 1:05 PM EST [facility] 56-02 CALCIUM 10.3(H) 8.4 - 10.2 mg/dL 09/09/2024 1:05 PM [facility] 56-02 Protein 7.5 6.0 - 8.3 g/dL 09/09/2024 1:05 PM [facility] 56-02 ALT 35 10 - 35 U/L 09/09/2024 1:05 PM [facility] 56-02 Blood Venous blood specimen / Unknown Venipuncture / Unknown 09/09/2024 10:23 AM EST 09/09/2024 10:23 AM EST Renaldo Garza DO LAB BLOOD ORDERABLES Final Result [facility] [address] [place] [address] documented in this encounter Visit Diagnoses Diagnosis Abdominal pain, generalized- Primary Major depressive disorder with single episode, in full remission (HCC) HTN, goal below 130/80 Unspecified essential hypertension Disorder of iron metabolism, unspecified Dyslipidemia Other and unspecified hyperlipidemia Abdominal bloating Flatulence, eructation, and gas pain Chronic diarrhea Diarrhea DALE (generalized anxiety disorder) Generalized anxiety disorder documented in this encounter Advance Directives Documents on File Type Date Recorded Patient Gate Manager Expl anation Advance Directives and Livin g Will 02/16/1998 ADVANCE DIRECTIVE Care Teams Lokie Engineer Relationship Specialty Start Date End Date Tana Garza DO [address] [address] PCP - General Family Medicine 08/23/19 documented as of this encounter
--- OUTSIDE RECORDS SUMMARY | 2024-10-04 05:28 | External Medical Summary | Summary of Care ---
Author Name Unknown Organization [facility] Address [address] [place] [address] Phone [phone] Care Team Providers Care Telemarketing Representative Name Role Phone Tana Garza DO Primary Care Provider [phone] Encounter Details Date Type Department Care Team (Late st Contact Info) Description 08/18/2024 Population Health External Data Unspecified Department Allergies Active Allergy Reactions Criticality Noted Date Comments Sulfa Antibiotics 01/22/1999 anaphyllaxis documented as of this encounter (statuses as of 08/18/2024) Medications MULTI-DAY TABS OR 1 daily 1 [...] by mouth at bedtime. 90 Tablet 3 5 Active rOPINIRole HCl 0.5 MG Oral [...] as of this encounter (statuses as of 08/18/2024) Active Problems Problem Noted Date Diagnosed Date [...] as of this encounter (statuses as of 08/18/2024) Resolved Problems Problem Noted Date Diagnosed Date Resolved Date Chest wall discomfort 12/20/20202022 Snoring 02/23/2019 11/07/2019 Overview (11/07/2019): Acute. Encounter for examination fo r normal comparison and control in clinical research program 10/29/2017 02/27/2020 Overview (11/12/2020): DO NOT DELETE [facility] DSETINEY Study: Project # [id number], Fruit Ii Farmworker: Jerod Borden, PhD. SUMMARY: Goal: Establish test [...] contact study staff at ; after hours Fruit Ii Farmworker via the [facility] universal winding machine operator . Please contact study team before resolving/deleting from patients problem list. Study phone number: [phone]. Diagnosis changed due to Research Module. Go to Snapshot for study details. Encounter for examination fo r normal comparison and control in clinical research program 10/29/2017 03/27/2022 Overview (11/12/2020): DO NOT DELETE - [facility] DETECT Study: Project # [id number], Fruit Ii Farmworker: Chris Connell, MS, MPH. SUMMARY: Goal: Establish [...] contact study staff at ; after hours Fruit Ii Farmworker via the [facility] universal winding machine operator . - Please contact study team before resolving/deleting from patients problem list. Study phone number: [phone]. Diagnosis changed due to Research Module. Go [...] as of this encounter (statuses as of 08/18/2024) Immunizations Name Administration Dates Next Due COVID-19 [...] No 02/01/2024 Does the household have a [facility] source [facility] income? (Household - for ages [...] Care Team (Late st Contact Info) Description 12/21/2024 1:00 PM EDT Office Visit Family Practice [facility] [address] [address] Tana Garza DO [address] [address] 02/17/2025 10:00 AM EDT Nurse Only Ancillary [facility] [address] [address] [place], Nurse Annual Wellness [facility] [address] [address] Health Maintenance Due Date Last Done Comments [...] Documents on File Type Date Recorded Patient Registered Land Surveyor Expl anation Advance Directives and Livin g Will 02/16/1998 ADVANCE DIRECTIVE Care Teams Telemarketing Representative Relationship Specialty Start Date End Date Tana Garza DO [address] [place] [address] PCP - General Family Medicine 08/23/19 documented as of this encounter
[2024-10-04] MEDS: CeleBREX 200 MG CAP PO SCH (05:58)
[2024-10-04] MEDS: LR 500ML BOLUS, THEN 15ML/HR IV SCH (05:58)
[2024-10-04] MEDS: METOCLOPRAMIDE HCL 10 MG TABLET PO SCH (05:58)
[2024-10-04] MEDS: FAMOTIDINE 20 MG TAB PO SCH (05:58)
[2024-10-04] MEDS: LR 60ML/HR IV SCH (05:58)
[2024-10-04] MEDS: ACETAMINOPHEN 500 MG TAB PO SCH (05:58)
[2024-10-04] MEDS: dexAMETHasone**PF** 10 MG/ML VIAL IV SCH (06:01)
[2024-10-04] MEDS ORDERED: BUPIVACAINE 0.25% PF 30 ML VIAL ONE (06:25)
[2024-10-04] MEDS ORDERED: BUPIVACAINE 0.5 % 5 MG/1 ML PF 10ML VIAL ONE (06:25)
[2024-10-04] MEDS ORDERED: MIDAZOLAM HCL 1 MG/ML 2ML VIAL ONE ×2 (06:42→07:04)
[2024-10-04] MEDS ORDERED: ONDANSETRON INJ 2 MG/ML 2 ML VIAL ONE (06:49)
--- NOTE | 2024-10-04 06:50 | History & Physical Bridge Note ---
Date of Service October 04, 2024 History & Physical Bridge Note I have examined the patient, reviewed the History & Physical and in the interval since the performance of the History & Physical I have noted the following changes of clinical significance: no changes noted
[2024-10-04] MEDS: ceFAZolin 2000MG 2,000 MG/15 ML SYR IV SCH ×2 (07:00→15:23)
[2024-10-04] MEDS ORDERED: KETAMINE HCL 10MG/ML SYR ONE (07:08)
[2024-10-04] MEDS ORDERED: PROPOFOL IV EMULSION 10 MG/ML 20 ML VIAL IV ONE ×3 (07:10→08:27)
[2024-10-04] MEDS ORDERED: ONDANSETRON INJ 2 MG/ML 2 ML VIAL IV PRN ×2 (07:12→10:48)
[2024-10-04] MEDS ORDERED: ePHEDrine sulfate 50 MG/ML AMP IV PRN (07:12)
[2024-10-04] MEDS ORDERED: ATROPINE SULFATE 0.1 MG/ML 10ML SYR IV PRN (07:12)
[2024-10-04] MEDS ORDERED: fentaNYL citrate PF 100 MCG/2 ML VIAL IV PRN (07:12)
[2024-10-04] MEDS ORDERED: PHENYLEPHRINE 100MCG/ML 5ML SYR ONE ×2 (07:23→08:26)
[2024-10-04] MEDS ORDERED: DexMEDEtomidine HCL IV 100 MCG/ML VIAL IV ONE (07:36)
[2024-10-04] MEDS: ORTHO JOINT ANESTHETIC ONE (07:36)
[2024-10-04] MEDS: ROPIV 0.5% 246mg, Ketorolac 30mg, EPINEPHrine 0.5mg in NSS INFIL SCH (07:36)
[2024-10-04] MEDS: TRANEXAMIC ACID 1,000 MG **IV Intra-op IV SCH (07:58)
--- NOTE | 2024-10-04 09:11 | Operative Report ---
PG Post Operative Report Pre & Post Diagnosis Operation Date: 10/04/24 07:00 Pre-Op Diagnosis: Osteoarthritis Knee Left Post-Op Diagnosis: Osteoarthritis Knee Left I identified the patient and participated in the time-out.: Yes Procedure Operation Date: 10/04/24 07:00 Actual Procedures p Left Total Knee Arthroplasty(Left) - Lon Calero MD Surgeon Lon Calero MD Medical Claims Representative Nora Wallace PA-C Estimated Blood Loss 50 Findings Consistent with Post-Op Diagnosis Operative findings were advanced left knee tricompartment DJD. She had extensive grade 4 [id number] disease in all 3 compartments most severe laterally. She had a fixed left valgus contracture of her knee with a slight flexion contracture about 10 degrees. She had diffuse osteopenia. Specimens Left knee sent for pathology. Anesthesia Type Spinal MAC Complications none Disposition Accompanied Patient To Recovery: No Indications Patient is a 78-year-old female has had a long history of bilateral knee pain discomfort described to gotten worse over time. She been through extensive conservative care which became less successful over time. She had a right knee replaced about 9 months ago and is done well from this. She continued be limited by left knee pain and discomfort. She elected proceed with left total knee arthroplasty. Description of Procedure Operative implants consist of: 1 Biomet Vanguard size 57.5 left posterior Byce femoral component. 2. Biomet size 67 tibial tray. 3. 10 mm PS plus insert. 4. 28 x 8 all poly patella. The patient was taken to the operating, identified, and placed on the operating table in supine position. All contact areas were appropriately padded. IV antibiotics fibra anesthesia team. A spinal anesthetic and been implemented in the holding area along with an adductor canal block. A Gallo catheter was placed in sterile fashion. A left thigh turn was then placed. Left lower extremity was then prepped and draped in usual sterile fashion. The left leg was elevated exsanguinated with use of an Esmarch and a turn was placed at 300 mmHg. An anterior approach to the left knee was then performed through a longitudinal incision centered over the patella. Sharp dissection was Through subcutaneous tissue down the extensor mechanism. A medial parapatellar arthrotomy incision was made. Some subperiosteal dissection was carried out medially. The fat pad was resected munis patella tendon. The lateral patellofemoral ligament was released. Patella subluxated laterally and the knee was flexed. The osteophytes taken on distal femur. The ACL and PCL were then released from distal femur the tibia subluxated anteriorly. The external tibial alignment jig was then placed on the interface of the tibia and adjusted 12 mm medially. The proximal tibial cut was made remove about 2 to 3 mm of bone from the medial side. The tibia was sized to a size 67. Her bone was quite osteopenic and we did try and maximize the tibial coverage. Attention drawn the femur. The distal femur was entered with a sharp drill. Intramedullary canal was suction. A left 5 degree valgus cutting guide was placed. The distal femoral c utting block was pinned in place. This femoral cut was made to take an additional 3 mm of bone off distal femur. The femur was then sized to a size 57.5. The AP cutting block was pinned parallel to the epicondylar axis which was 5 degrees of external rotation. The anterior cut, anterior chamfer, posterior cut, posterior chamfer cuts were made. The box cutting guide was placed and just slight lateral and the box cut was made. The knee was flexed. The remnants of the medial and lateral menisci were excised. The osteophytes taken off the posterior aspect the femur. A trial femoral component was placed. The tibial tray was pinned in Laura external rotation and the drill and stem punch use great defect in proximal tibia for the tibial tray. The knee was then trialed and the 10 mm insert fit most appropriately. She still has just a little bit of the MCL laxity so I elected to use a PS plus insert. Attention drawn the patella. The patella was cleaned of all soft tissue. Patella thickness measured 20 mm in thickness was cut down to 13. Was sized to a size 28 patella. The lug holes were drilled for the 28 patella. The lateral osteophyte was removed. Patella button was placed. Knee was taken through range of motion and the patella tracked nicely with no thumbs test. Attention drawn to placement permanent components. All trial components were removed. Bone plug was placed into this femur limit blood loss. A double batch Palacos G cement was mixed. Biommygolaguard size 57.5 left posterior Byce femoral component, size 67 tibial tray, a 10 mm PS plus insert, and a 28 x 8 all poly patella then cemented in place. The knee was brought out into full extension until the cement hardened. Final cement check was then performed. Pericapsular tissues were injected with total of 100 cc of Ortho mix. The patient did receive 1 g tranexamic acid. The tourniquet was then let down for a final tourniquet time of 60 minutes. Hemostasis assured use electrocautery. Extensor Meclomen then closed with combination 1 PDS suture #0 Vicryl suture in a [id number] fashion. Extensor Meclomen checked found be intact. Subcutaneous tissues then closed with 2 Dexon suture in a buried interrupted fashion skin was closed skin teddy. Leg was then cleaned and dried a sterile dressing with Xeroform, 4 fours, sterile cast padding, Parker bandage were applied. Patient then transferred to the recovery in stable condition. Patient tolerated procedure well and there were no complications. Nora Wallace, my physician assistant paralegal, was present for the entire procedu re. Her assistance was required for proper patient positioning, prepping and draping, surgical exposure, retraction, perform the technical details of the operation, placement of hardware, closure of the incision site and placement of the postoperative bandage. I attest to the content of the Intraoperative Record and any orders documented therein. Any exceptions are noted below.
--- NOTE | 2024-10-04 09:27 | XRay Report ---
XR knee LT 1 or 2V routine CLINICAL HISTORY: Surgical Post Op COMPARISON: None pertinent FINDINGS: 2 postoperative views of the left knee demonstrate a total knee replacement with satisfact ory positioning and alignment of the prosthetic components. Postsurgical changes are noted in the sof t tissues. IMPRESSION: Satisfactory postop appearance ACT 112: Negative or not required by law. Electronically signed by: Svitlana Knox M.D. 10/04/2024 9:26 AM
--- NOTE | 2024-10-04 09:51 | Anesthesiology Progress Note ---
Date of Service October 04, 2024 Anesthesia Post Procedure Vital Signs Vital Signs: Temp Pulse Pulse Resp BP Pulse Ox O2 Del Method 10/04/24 09:35 88 22 126/51 L 94 Room Air 10/04/24 09:25 84 20 128/54 L 93 Room Air 10/04/24 09:15 82 20 133/51 L 99 Oxymask 10/04/24 09:05 91 H 16 121/65 100 Oxymask 10/04/24 08:59 36 C L 78 16 134/59 L 96 Oxymask 10/04/24 05:45 37 C 78 20 152/75 H 96 Room Air O2 Flow Rate 10/04/24 09:35 10/04/24 09:25 10/04/24 09:15 4 10/04/24 09:05 4 10/04/24 08:59 6 10/04/24 05:45 Pain Intensity Left Knee: Pain Intensity: 3 Transfer of Care Handoff Completed per policy Notes Mental Status: alert / awake / arousable Patient Amnestic to Procedure: Yes Nausea / Vomiting: adequately controlled Pain: adequately controlled Airway Patency, RR, SpO2: stable & adequate BP & HR: stable & adequate Hydration State: stable & adequate Neuraxial Anesthesia: was administered and sensory block is resolving Anesthetic Complications: no major complications apparent and Pt Satisfied with anesthetic care
[2024-10-04] MEDS ORDERED: MAGNESIUM HYDROXIDE SUSP 30 ML UDC PO PRN (10:48)
[2024-10-04] MEDS ORDERED: NON-FORMULARY MEDICATION (Multivitamin Tablet) PO SCH (10:48)
[2024-10-04] MEDS ORDERED: ACETAMINOPHEN 500 MG TAB PO PRN (10:48)
[2024-10-04] MEDS ORDERED: NALOXONE HCL 0.4 MG/1 ML VIAL/CARP IV PRN (10:48)
[2024-10-04] MEDS ORDERED: HYDROmorphone INJ 0.5 MG/0.5 ML SYR IV PRN (10:48)
[2024-10-04] MEDS ORDERED: METOCLOPRAMIDE HCL INJ 5 MG/ML 2 ML VIAL IV PRN (10:48)
[2024-10-04] MEDS ORDERED: ALUMINUM/MAGNESIUM SUSP 30 ML UDC PO PRN (10:48)
[2024-10-04] MEDS ORDERED: bisacodyL 10 MG SUPP PR PRN (10:48)
[2024-10-04] MEDS: GABAPENTIN 100 MG CAP PO SCH (11:48)
[2024-10-04] MEDS: FLUoxetine HCL 20 MG CAP PO SCH (11:50)
[2024-10-04] MEDS: ASPIRIN 81 MG ECTAB PO SCH (11:50)
[2024-10-04] MEDS: POLYETHYLENE (MIRALAX) 17 GM PACK PO SCH (11:52)
[2024-10-04] MEDS: DOCUSATE SODIUM 100 MG CAP PO SCH (11:52)
[2024-10-04] MEDS: SENNA 8.6 MG TAB PO SCH (11:52)
[2024-10-04] MEDS: NON-FORMULARY MEDICATION (Vitamin B12-Folic Acid 1-0.8 mg Tablet) PO SCH (12:03)
[2024-10-04] MEDS: traMADol HCL 50 MG TABLET PO PRN (12:38)
[2024-10-04] MEDS: rOPINIRole HCL 0.25 MG TABLET PO PRN (15:06)
[2024-10-04] MEDS: TRANEXAMIC ACID / 0.7% NACL 1,000 MG/100 ML BAG IV SCH (15:23)
[2024-10-04] MEDS: KETOROLAC TROMETHAMINE 15 MG/ML VIAL IV SCH (17:44)
[2024-10-04] MEDS: ASCORBIC ACID 500 MG TAB PO SCH (17:44)
[2024-10-04] MEDS: rOPINIRole HCL 1 MG TABLET PO SCH (20:01)
[2024-10-04] MEDS: lisinopril 2.5 MG TAB PO SCH (20:01)
[2024-10-04] MEDS: ROSUVASTATIN CALCIUM 10 MG TAB PO SCH (20:01)
[2024-10-05 07:53] LABS: Hemoglobin 9.8 g/dl (12.0-16.0); Mean Corpuscular Hemoglobin 30.6 pg (25.0-34.0); Mean Corpuscular Hgb Conc 33.8 g/dL (32.0-36.0); Mean Corpuscular Volume 90.6 fL (80.0-100.0); Mean Platelet Volume 10.1 fL (9.4-12.4); Platelet Count 248 K/uL (130-400); RDW Coefficient of Variation 13.2 % (11.5-14.5); RDW Standard Deviation 43.8 fL (36.4-46.3); White Blood Count 11.27 K/ul (4.8-10.8)
[2024-10-05 08:01] VITALS: BP 122/65; PULSE 72; RESP 15; TEMP 97.9; O2SAT 100
--- NOTE | 2024-10-05 08:12 | Orthopedic Progress Note ---
Date of Service October 05, 2024 Assessment & Plan (1) Status post left knee replacement: Postop day 1 from left knee replacement by Dr. Calero -Lalo, SCDs, early ambulation and aspirin 81 mg twice daily for DVT prophylaxis. -PT/OT for ambulation/transfer and assessment for needs at home. -Postop day 2 the dressing can be taken down and changed. -Follow-up as an outpatient in 2 to 3 weeks for a postoperative check. Subjective Operation Date: 10/04/24 07:00 Actual Procedures p Left Total Knee Arthroplasty(Left) - Lon Calero MD Patient is postop day 1 from a left total knee arthroplasty by Dr. Calero. States she is doing well. She has been ambulating with nursing staff and independently with her walker. She has good range of motion has been working on left knee exercises. Does state that there was some saturation of her Parker wrap. States that nursing staff has placed another ABD pad there. Other than that, no other questions or concerns. Review of Systems All systems reviewed & are unremarkable except as noted in HPI & below. Physical Exam General: Alert and oriented. No acute distress. Left knee: The Parker wrap on the left lower extremity was dry at my visit today. She has very good range of motion and she is at full extension and is able to flex independently to 60 degrees. I did assist her into her recliner for breakfast today. She did very well with ambulating and with transferring. Neurovascularly intact left lower extremity. Results & Data Results & Data Laboratory Results . Diagnostic Findings . PG Care Time/CCT Total # of Minutes Spent Total Time Spent with Patient: Total time spent is greater than 50% in coordination of care (as documented) at patient's floor/unit and/or counseling patient: Coding Level of Care Code 07227 Post Operative Follow-Up Diagnoses Status post left knee replacement Z96.652
[2024-10-05 08:15] LABS: BUN Creatinine Ratio 27.9 (10-20); Calcium 9.2 mg/dl (8.6-10.3); Potassium 3.9 mmol/L (3.5-5.1)
[2024-10-05] MEDS: dexAMETHasone 10 MG in SYRINGE 0 ML IV SCH (09:13)
[2024-10-05] MEDS: CALCIUM 600MG + VIT D 400 IU TAB PO SCH (09:14)
[2024-10-05] MEDS: MULTIVITAMIN TAB PO SCH (09:14)
[2024-10-05] MEDS: OMEGA-3 (PURIFIED FISH OIL) 1 GM CAP PO SCH (09:14)
[2024-10-05] MEDS: FLUTICASONE PROPIONATE NA SPR 16 GM BTL NAE SCH (09:15)
--- NOTE | 2024-10-05 13:36 | Discharge Summary ---
Date of Service October 05, 2024 Admission HPI (Per Admitting) . The patient is a 78-year-old female who now presents for surgical treatment of her left knee. She had a long history of knee problems that is gradually gotten worse over time. She had a right knee replaced about 9 and half months ago and done pretty well with this. The first couple weeks were difficult but doing much better now. Pretty happy with the right knee. The left knee continues to bother her. She has had injections which provided couple weeks of relief at best. She limps more as the day goes on. Some mild swelling. She is ready to have her left knee fixed. Admission Exam (Per Admitting) . Physical examination reveals a pleasant elderly female. Looks in pretty good health. Examination of the left knee reveal patient walks with a slightly of a limp. Got valgus alignment to her knee which is increased with weightbearing. Range of motion about 10-1 15. No instability. No particular pain with hip motion. Examination of the right knee reveals well-healed incision. She got anatomic alignment to the knee. Range of motion 0-1 20. Good straight leg raise. Principal Diagnosis Same as "Discharge Diagnosis" noted below under Discharge Instructions. Discharge Exam General: Alert and oriented. No acute distress. Left knee: The Parker wrap on the left lower extremity was dry at my visit today. She has very good range of motion and she is at full extension and is able to flex independently to 60 degrees. I did assist her into her recliner for breakfast today. She did very well with ambulating and with transferring. Neurovascularly intact left lower extremity. Discharge Data Procedures Performed Operation Date: 10/04/24 07:00 Actual Procedures p Left Total Knee Arthroplasty(Left) - Lon Calero MD Ordered Studies 10/04/24 05:00 US - OR guided needle placemen Routine Hospital Course (1) Status post left knee replacement: Postop day 1 from left knee replacement by Dr. Calero -Lalo, SCDs, early ambulation and aspirin 81 mg twice daily for DVT prophylaxis. -PT/OT for ambulation/transfer and assessment for needs at home. -Postop day 2 the dressing can be taken down and changed. -Follow-up as an outpatient in 2 to 3 weeks for a postoperative check. PG Care Time/CCT Total # of Minutes Spent Total Time Spent with Patient: Total time spent is greater than 50% in coordination of care (as documented) at patient's floor/unit and/or counseling patient: Discharge Plan Discharge Items Patient Disposition: Home - Home Health Services Reason For Visit: Osteoarthritis Knee Left Discharge Diagnosis: Left Knee Replacement Activity: Per Instructions section Weightbearing: Full weightbearing Non-emergency contact: Surgeon Call non-emergency contact if: you have any medication questions Follow-up/Referrals: Tana Garza, [Primary Care Provider] - Diet: Regular Addtl Attending Provider Instructions: ACTIVITY RECOMMENDATIONS: Diet: * You may resume previous diet. Physical Therapy: * You will go to physical therapy three times each week for four to six weeks after your surgery in order to regain your knee range of motion and to retrain your knee to work properly. * It is just as important to make sure you are getting your knee perfectly straight as it is to regain your knee bend. * Taking a pain pill an hour before therapy can help you have a more productive and comfortable therapy session. Home Exercise: * You were shown a series of exercises (heel props, heel slides, etc.) in the hospital. Do these exercises three to four times each day including the exercises you were shown in physical therapy. Walking: * Get up and walk several times each day. For the first four weeks, try not to stand or walk for more than one hour at a time. If you do stand or walk for more than one hour, you will not hurt anything, but your knee and leg will likely swell. * As you feel comfortable, you may change from the walker or crutches to a cane and then to independent walking. MEDICATIONS: New Medicine: * You will likely be taking one or more of these medications: 1. Tramadol - A quick and shorter-acting pain medication. Take one to two tablets every six hours to lessen your pain. 2. Aspirin - Thins your blood to lessen the chance of forming a blood clot. * The most common side effects of pain medicine and iron are nausea and con stipation. If nausea or constipation is too much of a problem or if you have any questions about your new medicines or doses, call [facility] at . We will try to help you manage these issues. "VERY IMPORTANT TO READ AND REVIEW" Pain: * The immediate post-operative period after knee replacement surgery is often quite painful. * You are given a prescription for pain medicine. You should take it, as directed, when you need it, especially before physical therapy and before going to bed. Pain that interferes with sleep is very common and can last several months. * You will likely need pain medicine for the first four to six weeks. It will not stop all of the pain. The pain will lessen and as you feel better, you may change to milder pain medicine such as Tylenol. * The most common side effects of pain medicine are nausea and constipation, so don't take more than you need. SPECIAL CARE INSTRUCTIONS: TEDs/Elastic Stockings: * The white elastic stockings help limit swelling and prevent blood clots from forming in your legs. The more you wear them, the more they work. * Wear them for six weeks after knee replacement surgery and four weeks after partial knee replacement. Incision Site Care: * Remove dressing postoperative day 2 and then shower. Keep direct shower pressure off the incision site. * After showering, cover teddy with dry gauze and change daily or more frequently if the dressing is getting saturated with drainage. * Use the CATIE stockings to hold dressing in place. DO NOT apply tape on the skin. * May completely stop using bandage if wound is dry and no drainage * [place] are removed between 2 and 3 weeks post-op. If your follow-up appointment is made before 2 weeks, please have your appointment re- scheduled. It is too early to remove the teddy. Prevention of Infection: * Take antibiotics one hour before any dental cleaning, dental work, urological procedure, gastrointestinal procedure or any invasive surgery in order to prevent your new joint from getting infected. * You may get the antibiotics from the doctor performing the procedure or you may call our office at [phone] before and we will call in a prescription to the pharmacy of your choice. Things to Watch For: * Drainage from the incision site that occurs more than one week after your surgery. * Severely increased knee/leg pain or swelling. * Increased redness at the incision site. * Fever above 102 degrees Fahrenheit. * Unusual chest pain or shortness of breath. * Unusual pain or burning with urination. Call [facility] at [phone] with any of the above problems or if you have any questions about your medicines or recovery. FOLLOW UP VISIT: Make an appointment to see your doctor for approximately two weeks after surgery for a progress check and staple removal by calling the office at [phone]. Pending Studies at Discharge: No Stand-Alone Forms: My [facility] [place], Smoking Cessation Medications and DC Order Prescriptions: Continued (DME) Paramdeya [facility] See Rx Instructions .MEDSUPPLY Qty: 1 0RF Rx Instructions: As directed tramadol 50 mg tablet 50 - 100 mg PO Q6 PRN (Reason: pain) Qty: 40 0RF Rx Instructions: Take as needed for pain ondansetron 4 mg tablet,disintegrating 4 mg PO Q8 PRN (Reason: nausea) Qty: 20 1RF Rx Instructions: Take as needed for nausea aspirin [Silvano Low Dose Aspirin] 81 mg tablet,delayed release (DR/EC) 81 mg PO BID 45 Days Qty: 90 0RF Rx Instructions: Take to prevent blood clots. lisinopril 2.5 mg tablet 2.5 mg PO QPM rosuvastatin 10 mg tablet 10 mg PO QPM fluoxetine 20 mg capsule 20 mg PO QAM gabapentin 100 mg capsule 100 mg PO QAM triamcinolone acetonide [Nasacort] 55 mcg aerosol,spray 1 spray intranasal QAM Rx Instructions: administer into each nostril ropinirole 1 mg Tablet 1 mg PO HS Rx Instructions: administer 1-3 hours before bedtime ropinirole 0.5 mg Tablet 0.5 mg PO TID PRN (Reason: Restless Leg(S)) vitamin [id number] acid 1-0.8 mg Tablet 1 tab PO DAILY acetaminophen [Tylenol Extra Strength] 500 mg tablet 1,000 mg PO TID PRN (Reason: pain) Rx Instructions: Take 3 times per day to lessen pain multivitamin Tablet 1 tab PO QAM calcium carbonate-vitamin D3 600 mg-5 mcg (200 unit) Tablet 2 tab PO QAM omega 9-gkj-gjq-fish oil [Fish Oil] 300-1,000 mg Capsule 1 cap PO QAM Discontinued ibuprofen 200 mg Tablet 400 mg PO Q6H PRN (Reason: Pain) No Action cefadroxil 500 mg Capsule 500 mg PO BID docusate sodium [Stool Softener] 100 mg Capsule 100 mg PO BID gabapentin 100 mg Capsule 200 mg PO HS amoxicillin 500 mg tablet 2,000 mg PO DIRECTED PRN (Reason: 1 HR PRIOR TO DENTAL PROCEDURES) Red/Other Patient Handouts: DVT Post Op Prevention Admission Data Admit Date/Time: 10/04/24 09:04 Attending Provider: Lon Calero Admit Provider: Lon Calero Primary Care Provider: Tana Garza Other Providers: [facility],Home Health Other Interventions: Discharge Summary Assessment (RN) Last Done: 10/05/24 11:21
== END 2024-10-05 12:10 | disposition home health service (06) ==
LOC: 3E 05:16 → ASU 05:16

== ENCOUNTER 2025-02-01 08:50 | Inpatient (IN) ==
--- NOTE | 2025-01-23 13:04 | PAT Medication Instructions ---
Medication Instructions Date of Service January 23, 2025 Home Medications Medication Instructions Recorded Wheeled Walker #1 ea 12/15/23 oxycodone 5 mg tablet 5 mg PO Q8H PRN pain #20 tabs 01/05/25 calcium 600 mg (as carbonate)-vitamin D3 5 mcg (200 unit) tablet 2 tab PO QAM fluoxetine 20 mg capsule (Prozac) 20 mg PO QAM gabapentin 100 mg capsule 100 mg PO UD lisinopril 2.5 mg tablet 2.5 mg PO QPM multivitamin 1 tab PO QAM omega 8-pip-imd-fish oil 300 mg-1,000 mg capsule (Fish Oil) 1 cap PO QAM rosuvastatin 10 mg tablet 10 mg PO QPM triamcinolone acetonide 55 mcg nasal spray aerosol (Nasacort) 1 spray intranasal QAM acetaminophen 500 mg tablet (Tylenol Extra Strength) 1,000 mg PO TID PRN pain ropinirole 0.5 mg tablet 0.5 mg PO UD PRN Restless Leg(S) ropinirole 1 mg tablet 1 mg PO HS vitamin B12 1 mg-folic acid 0.8 mg tablet 1 tab PO QAM amoxicillin 500 mg tablet 2,000 mg PO DIRECTED PRN 1 HR PRIOR TO DENTAL PROCEDURES docusate sodium 100 mg capsule (Stool Softener) 100 mg PO BID oxycodone 5 mg tablet 5 mg PO Q8H PRN pain ferrous sulfate 325 mg (65 mg iron) tablet 325 mg PO Q2D Continue as directed amoxicillin 500 mg tablet 2,000 mg PO DIRECTED PRN 1 HR PRIOR TO DENTAL PROCEDURES (if needed) STOP taking 2 weeks before surgery (or as soon as possible if surgery is within 2 weeks) omega 7-cyu-byk-fish oil 300 mg-1,000 mg capsule (Fish Oil) 1 cap PO QAM DO NOT take the morning of surgery calcium 600 mg (as carbonate)-vitamin D3 5 mcg (200 unit) tablet 2 tab PO QAM multivitamin 1 tab PO QAM vitamin B12 1 mg-folic acid 0.8 mg tablet 1 tab PO QAM docusate sodium 100 mg capsule (Stool Softener) 100 mg PO BID ferrous sulfate 325 mg (65 mg iron) tablet 325 mg PO Q2D Take morning of surgery With a small sip of water, OTHERWISE NOTHING TO EAT OR DRINK AFTER MIDNIGHT: fluoxetine 20 mg capsule (Prozac) 20 mg PO QAM gabapentin 100 mg capsule 100 mg PO UD triamcinolone acetonide 55 mcg nasal spray aerosol (Nasacort) 1 spray intranasal QAM acetaminophen 500 mg tablet (Tylenol Extra Strength) 1,000 mg PO TID PRN pain (if needed) ropinirole 0.5 mg tablet 0.5 mg PO UD PRN Restless Leg(S) (if needed) oxycodone 5 mg tablet 5 mg PO Q8H PRN pain (if needed) Take evening before surgery gabapentin 100 mg capsule 100 mg PO UD lisinopril 2.5 mg tablet 2.5 mg PO QPM rosuvastatin 10 mg tablet 10 mg PO QPM acetaminophen 500 mg tablet (Tylenol Extra Strength) 1,000 mg PO TID PRN pain (if needed) ropinirole 0.5 mg tablet 0.5 mg PO UD PRN Restless Leg(S) (if needed) ropinirole 1 mg tablet 1 mg PO HS docusate sodium 100 mg capsule (Stool Softener) 100 mg PO BID oxycodone 5 mg tablet 5 mg PO Q8H PRN pain (if needed) Other Notes If you have any questions please call us at [phone] or [phone] or [phone] or [phone]
--- NOTE | 2025-01-24 13:57 | Anesthesiology Consultation ---
Date of Service January 24, 2025 Assessment & Plan (1) Encounter for pre-operative examination: - Infectious disease screening: Per assessment on 01/24/25- No known recent infectious disease contacts or current infectious disease symptoms. - S/P Left TKA (10/04/24): SAB (2 attempts) + regional at [facility]. "Pt constantly moving arms requiring increase sedation" per anesthesia record. No major anesthesia complications apparent per post-op anesthesia progress note. Chart Review Chart Review: Acceptable Risk for Surgery (pending evaluation DOS) and Patient seen in Pre Admission Testing Teaching & Discussion Pre-Anesthesia Teaching/Discussion Notes: Instructed NPO after midnight before surgery,except medications with 15 cc of water. Medication instructions provided according to the PAT guidelines. History Surgery Operation Date: 02/01/25 10:40 Proposed Procedures p Left Revision Total Knee Arthroplasty and Conversion to a Hinged Knee with Femoral Replacement - Lon Calero MD Height/Weight Height: 5 ft 2.5 in Weight: 85.9 kg Allergies Allergy/AdvReac Type Severity Reaction Status Date / Time Sulfa (Sulfonamide Allergy Mild Hives Verified 01/23/25 11:54 Antibiotics) Medications Home Medications Medication Instructions Recorded Confirmed Last Taken calcium 600 mg (as 2 tab PO QAM 12/10/23 01/23/25 10/03/24 08:00 carbonate)-vitamin D3 5 mcg (200 unit) tablet fluoxetine 20 mg capsule (Prozac) 20 mg PO QAM 12/10/23 01/23/25 10/05/24 gabapentin 100 mg capsule 100 mg PO UD 12/10/23 01/23/25 10/05/24 lisinopril 2.5 mg tablet 2.5 mg PO QPM 12/10/23 01/23/25 10/05/24 multivitamin 1 tab PO QAM 12/10/23 01/23/25 10/03/24 08:00 omega 4-msk-ojp-fish oil 300 1 cap PO QAM 12/10/23 01/23/25 09/20/24 mg-1,000 mg capsule (Fish Oil) rosuvastatin 10 mg tablet 10 mg PO QPM 12/10/23 01/23/25 10/05/24 triamcinolone acetonide 55 mcg 1 spray intranasal QAM 12/10/23 01/23/25 10/04/24 04:00 nasal spray aerosol (Nasacort) Wheeled Walker #1 ea 12/15/23 01/20/25 Unknown acetaminophen 500 mg tablet 1,000 mg PO TID PRN pain 08/05/24 01/23/25 10/05/24 (Tylenol Extra Strength) ropinirole 0.5 mg tablet 0.5 mg PO UD PRN Restless Leg(S) 08/05/24 01/23/25 10/05/24 17:30 ropinirole 1 mg tablet 1 mg PO HS 08/05/24 01/23/25 10/05/24 vitamin B12 1 mg-folic acid 0.8 mg 1 tab PO QAM 08/05/24 01/23/25 10/02/24 08:00 tablet amoxicillin 500 mg tablet 2,000 mg PO DIRECTED PRN 1 HR 10/05/24 01/23/25 Unknown PRIOR TO DENTAL PROCEDURES docusate sodium 100 mg capsule 100 mg PO BID 10/05/24 01/23/25 10/05/24 (Stool Softener) oxycodone 5 mg tablet 5 mg PO Q8H PRN pain #20 tabs 01/05/25 01/23/25 Unknown ferrous sulfate 325 mg (65 mg 325 mg PO Q2D 01/23/25 01/23/25 Unknown iron) tablet Past Medical History Medical History Bilateral primary osteoarthritis of knee Chronic anemia Depression stable Hearing loss Bilateral Hearing Aids History of COVID- Fall 2022 - no residual issues Hx of migraine headaches No issues x 20 years Hyperlipidemia Hypertension Left knee DJD Neuropathy Feet x 30+ years Restless leg Sleep apnea No device - could not tolerate Stress incontinence Exercise / Class Metabolic Activity IV < 2 Limit ADL/Bedbound (Tolerating physical therapy/activity but primarily in wheelchair since October 2024 r/t knee pain/postop complications) Past Family History Family History Other No family history of adverse response to anesthesia Past Surgical History Surgical History History of arthroplasty of right knee (12/22/23) SAB L4-L5 1 attempt + PNB History of x1 (twins) History of colonoscopy History of surgery x 2 in childhood-right lower neck surgery to remove muscle mass caused by forceps used at History of tonsillectomy History of tooth extraction History of total left knee replacement (TKR) (09/2024) SAB (2 attempts) + regional, [facility] Slow to wake up after anesthesia Past Anesthesia History No Family Hx of Anesthesia Complications and Other (Slow to wake) History of PONV No Hx of PONV and No Hx of Motion Sickness Social History Smoking Status: Never smoker Do You Dip or Chew Tobacco: No Hx Alcohol Use: Yes Alcohol type: wine alcohol intake frequency: holidays/special occasions only Hx Substance Use: No substance use type: does not use Review of Systems Patient denies chest pain, shortness of breath, fever, chills, cough, wheezing, palpitations. Physical Exam Vital Signs BP 147/73 P 66 SP02 97%RA RESP 16 Physical Full cervical extension range of motion. Full TMJ range of motion. TMD 3 finger breaths Mallampati Score III Dentition: intact, + crowns Lungs: clear throughout to auscultation Cardiac: regular rate and rhythm, no murmurs noted Spine: normal Carotid arteries: negative bruit Extremities: no LE edema Lab Results Anesthesia Preop Results Results Anesthesia Widget: WBC 6.44 K/ul (4.8-10.8) 01/24/25 Hgb 11.3 g/dl (12.0-16.0) L 01/24/25 Hct 34.4 % (37.0-47.0) L 01/24/25 Plt 286 K/uL (130-400) 01/24/25 Na 140 mmol/L (136-145) 01/24/25 K 3.8 mmol/L (3.5-5.1) 01/24/25 Cl 107 mmol/L (98-107) 01/24/25 CO2 25 mmol/L (21-32) 01/24/25 BUN 23 mg/dl (6-23) 01/24/25 Creat 0.70 mg/dl (0.6-1.2) 01/24/25 Glucose Level 117 mg/dl (70-99(Fasting)) H 01/24/25 PT 10.2 Seconds (9.0-12.0) 01/24/25 PTT 28 Seconds (21-31) 01/24/25 INR 0.9 (0.9-1.1) 01/24/25 Blood Type O Positive 01/24/25 Antibody Screen NEGATIVE 01/24/25 Testing Electrocardiogram Date: 01/24/25 NSR at 63bpm. "Normal ECG" Chest X-Ray Date: 01/24/25 FINDINGS: Stable mild cardiomegaly without pulmonary vascular congestion. Stable hyperexpanded lungs. No consolidation or pleural effusion. IMPRESSION: No acute findings.
[~2025-02-01 08:50] MED LIST changes: -ACETAMINOPHEN 500 MG TAB PO SCH; -CeleBREX 200 MG CAP PO SCH; -FAMOTIDINE 20 MG TAB PO SCH; -LR 500ML BOLUS, THEN 15ML/HR IV SCH; -LR 60ML/HR IV SCH; -METOCLOPRAMIDE HCL 10 MG TABLET PO SCH; -ROPIV 0.5% 246mg, Ketorolac 30mg, EPINEPHrine 0.5mg in NSS INFIL SCH; +ROPIVACAINE 0.5% 5 MG/ML 30 ML VIAL ONE; -TRANEXAMIC ACID 1,000 MG **IV Intra-op IV SCH; -ceFAZolin 2000MG 2,000 MG/15 ML SYR IV SCH; -dexAMETHasone**PF** 10 MG/ML VIAL IV SCH
--- NOTE | 2025-02-01 09:16 | History & Physical Bridge Note ---
Date of Service February 01, 2025 History & Physical Bridge Note I have examined the patient, reviewed the History & Physical and in the interval since the performance of the History & Physical I have noted the following changes of clinical significance: no changes noted
[2025-02-01] MEDS: LR 60ML/HR IV SCH (09:35)
[2025-02-01] MEDS: LR 15ML/HR IV SCH (09:35)
[2025-02-01] MEDS: ACETAMINOPHEN 500 MG TAB PO SCH ×2 (09:36→20:43)
[2025-02-01] MEDS: CeleBREX 200 MG CAP PO SCH (09:38)
[2025-02-01] MEDS: FAMOTIDINE 20 MG TAB PO SCH (09:38)
[2025-02-01] MEDS: METOCLOPRAMIDE HCL 10 MG TABLET PO SCH (09:38)
[2025-02-01] MEDS: dexAMETHasone**PF** 10 MG/ML VIAL IV SCH (09:38)
[2025-02-01] MEDS ORDERED: PROPOFOL IV EMULSION 10 MG/ML 20 ML VIAL IV ONE ×5 (10:00→14:13)
[2025-02-01] MEDS ORDERED: MIDAZOLAM HCL 1 MG/ML 2ML VIAL ONE (10:00)
[2025-02-01] MEDS ORDERED: ATROPINE SULFATE 0.1 MG/ML 10ML SYR IV PRN (10:41)
[2025-02-01] MEDS ORDERED: HYDROmorphone INJ 1 MG/ML SYRINGE IV PRN (10:41)
[2025-02-01] MEDS ORDERED: ONDANSETRON INJ 2 MG/ML 2 ML VIAL IV PRN ×2 (10:41→16:49)
[2025-02-01] MEDS: ORTHO JOINT ANESTHETIC ONE (12:29)
[2025-02-01] MEDS ORDERED: PHENYLEPHRINE HCL 10 MG/ML VIAL ONE (12:43)
[2025-02-01] MEDS ORDERED: KETAMINE HCL 10MG/ML SYR ONE (13:27)
[2025-02-01] MEDS: VANCOMYCIN HCL 1000MG/20ML VIAL ONE (14:15)
[2025-02-01] MEDS: ROPIV 0.5% 246mg, Ketorolac 30mg, EPINEPHrine 0.5mg in NSS INFIL SCH (14:35)
--- NOTE | 2025-02-01 15:14 | Operative Report ---
PG Post Operative Report Pre & Post Diagnosis Operation Date: 02/01/25 10:40 Pre-Op Diagnosis: Left Supracondylar Periprosthetic Femur Fracture Post-Op Diagnosis: Left Supracondylar Periprosthetic Femur Fracture I identified the patient and participated in the time-out.: Yes Procedure Operation Date: 02/01/25 10:40 Actual Procedures p Left Revision Total Knee Arthroplasty and Conversion to a Hinged Knee with Disatal Femoral Replacement(Left) - Lon Calero MD Surgeon Lon Calero MD Health Systems Analyst Juventino Dempsey PA-C Estimated Blood Loss 150 Findings Consistent with Post-Op Diagnosis Operative findings revealed fracture of the medial epicondyle with displacement and collapse of the femoral component into a fixed varus and flexed position. Of the bone was healing with evidence of forming malunion. There was no sign infection. Tibia was well-fixed. Patella was well-fixed. Specimens Left knee components Anesthesia Type Spinal MAC Complications none Disposition Accompanied Patient To Recovery: No Indications The patient is a 79-year-old female who is now about 4 months out from a left total knee replacement. She struggled with persistent pain and discomfort that got significant worse several weeks after surgery. She did have 1 episode where she injured her knee is significantly and transferring from a car. Over time x- rays show progressive periprosthetic femur fracture drifting into varus and flexed deformity with fracture of the medial epicondyle. Patient failed conservative measures and attempt at conservative care. She is indicated for revision surgery. Considering the medial epicondyle fracture I did not think that this was something that could be fixed with a conventional prosthesis the MCL incompetence. Description of Procedure Operative implants consists of: 1. Biomet left 7 cm OSS distal femoral replacement. 2. Biomet size 63 tibial tray with 160 mm stem. 3. 12 mm hinged mobile-bearing polyethylene. 4. 11 x 150 mm bowed cemented femoral stem. The patient was taken to the op room, identified, placed on the operating table in the supine position. All conductors were appropriately padded. IV antibi otics were provided by anesthesia team. A spinal anesthetic been implemented holding area. Gallo catheter was placed in sterile fashion. A left thigh turn was then placed. The left lower extremity was then prepped and draped in usual sterile fashion. The left leg was elevated. Exsanguinated with use of a Esmarch and the tourniquet was placed at 300 mmHg. An anterior approach of the left knee was then performed to the previous incision extending it both proximally and distally. Sharp dissection was Through subcutaneous tissue down the extensor mechanism. A medial parapatellar arthrotomy incision was made. Some subperiosteal dissection was carried out medially. We did not do any cultures as there was no signs of infection. A complete synovectomy was then performed. I then measured the distal femoral with the using the templated femoral component and made a viviana for rotation as well as the transverse resection. I then cut the distal femur 7 cm proximal from the joint line. We then skeletonized the distal femur and removed it. We then very carefully remove the tibial tray. We used a saw along with a stacked osteotome technique to very carefully remove the tibial tray which came out with some degree of difficulty. It was well-fixed. I then used the drill and osteotome to remove the remaining cement. We then proceeded with preparing the tibia. The tibia was cleaned of all debris. I placed the IM aaron. I then made the proximal tibial cut to be essentially flush with the lowest residual cancellous bone. We then trialed this and sized it to a size 63. I then reamed up to a size 11. We then pinned the tibial tray and use the reamer and the stem punch to create the defect for the tibial tray. We then trialed the tray and it fit nicely. Attention drawn the femur. The distal femur was entered with a drill. I then reamed up to a size 11-1/2. We did get cortical chatter even at about a 10-1/2. We then assembled the 150 mm x 11 mm bowed stem and were able to fit it in nicely. I checked rotation and made sure we actually had this a bit externally rotated. This fit nicely. We then trialed the knee and the 12 mm insert fit most appropriately in extension. There was less than a centimeter of gap with a maximum tension and more on the lines of about [address] We elected place his implants. Nupathe all trial implants were removed. I irrigated the wound extensively. We then placement restrictors up to the femoral condyle and down the tibial canal. A double batch Palacos G cement was mixed with a gram of vancomycin. I then placed the tibial tray after placing cement in the canal. A second batch of Palacos G cement was mixed with a gram of vancomycin for the femur. We injected the femoral canal and placed the femoral component. We placed the trial poly and brought the knee out in the extension till the cement hardened. A final cement check was then performed. We trialed the knee and everything fit appropriately been tracked a ppropriately. The patella tracked nicely. We then placed the permanent polyethylene hinged bearing. Attention then drawn toward closing. The wound was irrigated extensively. We did inject locally with 50 cc of Ortho mix. The extensor Metros then closed with a combination of 1 PDS suture and #1 Vicryl suture in a [id number] fashion. The extensor Meclomen checked found to be intact the subcutaneous tissue then closed with 2 Dexon suture in buried erupted fashion and the skin was closed with skin teddy. The leg was then cleaned and dried and sterile dressed with Xeroform, 4 fours, sterile ABD pad, sterile cast padding, Parker bandage were applied. The patient then transferred to the recovery in stable condition. Patient tolerated procedure well and there were no complications. Juventino Dempsey, my physician metal forger's assistant, was present for the entire procedure. His assistance was required for proper patient positioning, prepping and draping, surgical exposure, retraction, perform the technical details of the operation, placement of the implants, closure of the incision site, and the placement of the postoperative sterile bandage. I attest to the content of the Intraoperative Record and any orders documented therein. Any exceptions are noted below.
--- NOTE | 2025-02-01 15:41 | XRay Report ---
TWO VIEWS LEFT KNEE CLINICAL HISTORY: Postoperative examination. FINDINGS: AP and crosstable lateral portable views of the left knee are compared to study dated 2024. A revised left knee arthroplasty is in near anatomic alignment. There are long tibial and femor al stems. There has been undersurface remodeling of the patella. No acute fracture is seen. There are expected postoperative changes around the knee including skin clips, soft tissue edema, and subcutan eous gas. IMPRESSION: Expected postoperative changes status post left knee arthroplasty revision. No acute frac ture is seen. ACT 112: Negative or not required by law. Electronically signed by: Haroldo Vanessa M.D. 02/01/2025 3:39 PM
--- NOTE | 2025-02-01 15:55 | Anesthesiology Progress Note ---
Date of Service February 01, 2025 Anesthesia Post Procedure Vital Signs Vital Signs: Temp Pulse Pulse Resp BP Pulse Ox O2 Del Method 02/01/25 15:40 99 H 20 146/70 H 94 Room Air 02/01/25 15:30 100 H 20 153/68 H 99 Oxymask 02/01/25 15:20 102 H 17 134/88 98 Oxymask 02/01/25 15:10 36.4 C L 103 H 24 161/74 H 100 Oxymask 02/01/25 09:29 36.8 C 66 20 137/64 100 Room Air O2 Flow Rate 02/01/25 15:40 02/01/25 15:30 8 02/01/25 15:20 8 02/01/25 15:10 8 02/01/25 09:29 Pain Intensity Left Knee: Pain Intensity: 7 Transfer of Care Handoff Completed per policy Notes Mental Status: alert / awake / arousable and participated in evaluation Patient Amnestic to Procedure: Yes Nausea / Vomiting: adequately controlled Pain: adequately controlled Airway Patency, RR, SpO2: stable & adequate BP & HR: stable & adequate Hydration State: stable & adequate Anesthetic Complications: no major complications apparent and Pt Satisfied with anesthetic care
[2025-02-01] MEDS ORDERED: HYDROmorphone INJ 0.5 MG/0.5 ML SYR IV PRN (16:49)
[2025-02-01] MEDS ORDERED: NALOXONE HCL 0.4 MG/1 ML VIAL/CARP IV PRN (16:49)
[2025-02-01] MEDS ORDERED: MAGNESIUM HYDROXIDE SUSP 30 ML UDC PO PRN (16:49)
[2025-02-01] MEDS ORDERED: ALUMINUM/MAGNESIUM SUSP 30 ML UDC PO PRN (16:49)
[2025-02-01] MEDS ORDERED: METOCLOPRAMIDE HCL INJ 5 MG/ML 2 ML VIAL IV PRN (16:49)
[2025-02-01] MEDS: KETOROLAC TROMETHAMINE 15 MG/ML VIAL IV SCH (17:29)
[2025-02-01] MEDS: ASCORBIC ACID 500 MG TAB PO SCH (17:55)
[2025-02-01] MEDS: FERROUS SULFATE 325 MG TAB PO SCH (17:55)
[2025-02-01] MEDS: SODIUM CHLORIDE 0.9% 1,000 ML IV SCH (17:55)
[2025-02-01] MEDS: TRANEXAMIC ACID / 0.7% NACL 1,000 MG/100 ML BAG IV SCH (20:37)
[2025-02-01] MEDS: DOCUSATE SODIUM 100 MG CAP PO SCH (20:44)
[2025-02-01] MEDS: ASPIRIN 81 MG ECTAB PO SCH (20:44)
[2025-02-01] MEDS: GABAPENTIN 100 MG CAP PO SCH (20:44)
[2025-02-01] MEDS: SENNA 8.6 MG TAB PO SCH (20:45)
[2025-02-01] MEDS: ROSUVASTATIN CALCIUM 10 MG TAB PO SCH (20:46)
[2025-02-01] MEDS ORDERED: SENNA 8.6 MG TAB PO SCH (21:00)
[2025-02-01] MEDS ORDERED: DOCUSATE SODIUM 100 MG CAP PO SCH (21:00)
--- NOTE | 2025-02-02 06:59 | Orthopedic Progress Note ---
Date of Service February 02, 2025 Assessment & Plan (1) Status post revision of total replacement of left knee: Plan: 79-year-old female postop day 1 from a left revision total knee arthroplasty due to a distal femoral replacement with a hinged knee. Orthopedically doing pretty well. Struggling a little bit with her restless leg. Otherwise doing well. Plan: 1. DVT prophylaxis including thigh-high teds, SCDs, aspirin twice a day. 2. PT/OT. She can weight-bear as tolerated in the left leg. 3. Pain control. Doing okay with current pain regimen. She prefers tramadol for the most part as opposed to oxycodone. 4. Restless leg. Will increase her ropinirole dose to as needed every 2 hours. 5. Disposition. Plan is to discharge to home with home health. She needs apparently stayed in the hospital for 2 nights based on insurance reasons. (2) Periprosthetic fracture of femur at tip of prosthesis: Admission and Anticipated Discharge Date Admission Date: February 01, 2025 Subjective 79-year-old female postop day 1 from revision left knee replacement to a distal femoral replacement. She is doing pretty well this morning. She is struggling again with her restless leg syndrome. Feels like she needs to take her ropinirole more regularly. Otherwise her pains been pretty well-controlled. Did not sleep well. No chest pain or shortness of breath. Physical Exam Physical Exam: Physical examination was a pleasant elderly female. She is lying in bed looks pretty comfortable this morning. Examination of left leg reveals the leg to be well aligned. Dressings clean dry and intact. She can dorsiflex and plantarflex her foot appropriately. She is neurologically intact. Respiratory: normal respiratory effort, lungs clear to auscultation Gastrointestinal (Abdomen): normal bowel sounds, soft, nontender, no hepatosplenomegaly Results & Data Vital Signs (Past 12 Hours) Vital Signs Temp Pulse Resp BP Pulse Ox O2 Del Method 02/02/25 05:55 36.8 C 76 16 136/72 96 Room Air 02/01/25 23:12 36.8 C 98 H 18 158/68 H 94 Room Air 02/01/25 19:15 37.2 C 92 H 18 133/68 96 Room Air Laboratory Results Labs are pending.
[2025-02-02] MEDS: dexAMETHasone 10 MG in SYRINGE 0 ML IV SCH (07:45)
[2025-02-02] MEDS: VITAMIN B COMPLEX TAB PO SCH (07:46)
[2025-02-02] MEDS: MULTIVITAMIN TAB PO SCH (07:46)
[2025-02-02] MEDS: OMEGA-3 (PURIFIED FISH OIL) 1 GM CAP PO SCH (07:46)
[2025-02-02] MEDS: CALCIUM 600MG + VIT D 400 IU TAB PO SCH (07:47)
[2025-02-02] MEDS: GABAPENTIN 100 MG CAP PO SCH (07:47)
[2025-02-02 08:21] LABS: Hematocrit (blood only) 31.0 % (37.0-47.0); Hemoglobin 10.3 g/dl (12.0-16.0); Mean Corpuscular Hemoglobin 29.2 pg (25.0-34.0); Mean Corpuscular Volume 87.8 fL (80.0-100.0); Platelet Count 283 K/uL (130-400); RDW Standard Deviation 48.1 fL (36.4-46.3); Red Blood Count 3.53 M/uL (4.20-5.40); White Blood Count 9.77 K/ul (4.8-10.8)
[2025-02-02 08:47] LABS: Anion Gap 8.0 (3-11); Blood Urea Nitrogen 20.0 mg/dl (6-23); Calcium 9.4 mg/dl (8.6-10.3); Carbon Dioxide 25.0 mmol/L (21-32); Chloride 109.0 mmol/L (98-107); Creatinine Clr Calc Pharmacy 56.2 ml/min; Glucose 94.0 mg/dl (70-99(Fasting)); Potassium 3.5 mmol/L (3.5-5.1); Sodium 142.0 mmol/L (136-145)
[2025-02-02] MEDS ORDERED: NON-FORMULARY MEDICATION (Multivitamin Tablet) PO SCH (09:00)
[2025-02-02] MEDS: TRIAMCINOLONE ACET NASAL SPRAY 10.8ML BTL NAE SCH (10:46)
[2025-02-02] MEDS: FLUTICASONE PROPIONATE NA SPR 16 GM BTL SCH (14:12)
--- NOTE | 2025-02-03 06:59 | Orthopedic Progress Note ---
Date of Service February 03, 2025 Assessment & Plan (1) Status post revision of total replacement of left knee: Plan: 79-year-old female postop day 2 from a revision of a knee replacement to a hinged knee. She is doing well. Hoping to go home today. Plan: 1. DVT prophylaxis including thigh-high teds, SCDs, aspirin twice a day. 2. PT/OT. Weight-bear as tolerated. Left total knee protocol. 3. Pain control. Doing okay with current pain regimen. 4. Disposition. Plan is discharge home with some home health later today if she is doing okay in therapy. (2) Periprosthetic fracture of femur at tip of prosthesis: Admission and Anticipated Discharge Date Admission Date: February 01, 2025 Subjective 79-year-old female now postop day 2 from revision left knee arthroplasty to a hinged knee with distal femoral placement. She is doing pretty well. Pains been pretty well-controlled. Restless leg has been controlled. She is hoping to go home today. Physical Exam Physical Exam: Physical nation is a pleasant elderly female. She is sitting up in her bedside looks pretty comfortable this morning. The dressing is clean dry and intact. She can dorsiflex and plantarflex her foot appropriately. She can lift her leg but is got a bit of a lag about 40 degrees. Results & Data Vital Signs (Past 12 Hours) Vital Signs Temp Pulse Resp BP Pulse Ox O2 Del Method 02/02/25 19:38 37.0 C 71 16 134/69 95 Room Air
[2025-02-03 07:39] VITALS: PULSE 74; RESP 18; TEMP 98.2; O2SAT 97
[2025-02-03 12:58] VITALS: BP 136/84
== END 2025-02-03 13:38 | disposition home health service (06) | DRG 467 ==
LOC: 3E 08:50 → ASU 08:50